=== PATIENT | female | born 1990 | race Caucasian/White ===

== ENCOUNTER 2020-12-20 15:24 | Emergency (ER) | payer MEDICARE, OTHER ==
[2020-12-20 15:29] VITALS: BP 105/76; PULSE 79; RESP 19; TEMP 97.9
[2020-12-20] MEDS ORDERED: ACETAMINOPHEN TAB 500 MG TAB PO STA (15:41)
--- NOTE | 2020-12-20 16:32 | XR ---
EXAMINATION TYPE: XR forearm LT DATE OF EXAM: 12/20/2020 COMPARISON: NONE HISTORY: Pain of mid and distal arm. Midshaft injury. TECHNIQUE: AP and lateral views of the left forearm obtained. FINDINGS: No acute fracture. No dislocation. Joint spaces and alignment are normal. Normal mineraliza tion. No significant soft tissue swelling. IMPRESSION: No acute fracture or dislocation.
--- NOTE | 2020-12-20 16:42 | ED ---
General Adult HPI - General Chief complaint: Extremity Injury, Upper Stated complaint: Arm injury Time Seen by Provider: 12/20/20 15:30 Source: patient Mode of arrival: ambulatory Limitations: no limitations - History of Present Illness Initial comments: 30-year-old female presents to emergency Department with a chief complaint of left arm pain. Patient reports she was opening up an ottoman when the lid fell on the left forearm. Patient reports this occurred about 10 minutes prior to arrival. Patient reports she noticed some swelling and pain at the site of injury but denies any ecchymosis. Denies any paresthesias. States the pain is worse when the region is pressed were palpated and alleviated at rest. Patient is requesting Tylenol for pain. - Related Data Home Medications Medication Instructions Recorded Confirmed Albuterol Nebulized [Ventolin 2.5 mg INHALATION Q4H PRN 03/18/15 03/18/15 Nebulized] Ziprasidone [Geodon] 80 mg PO HS 03/18/15 03/18/15 Allergies Allergy/AdvReac Type Severity Reaction Status Date / Time No Known Allergies Allergy Verified 12/20/20 15:28 Review of Systems ROS Statement: Those systems with pertinent positive or pertinent negative responses have been documented in the HPI. ROS Other: All systems not noted in ROS Statement are negative. 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 History of Any Multi-Drug Resistant Organisms: None Reported Past Surgical History: No Surgical Hx Reported Past Psychological History: ADD/ADHD, Bipolar Smoking Status: Never smoker Past Alcohol Use History: Occasional Past Drug Use History: None Reported General Exam Limitations: no limitations General appearance: alert, in no apparent distress, obese Head exam: Present: atraumatic, normocephalic, normal inspection Eye exam: Present: normal appearance, PERRL, EOMI Pupils: Present: normal accommodation ENT exam: Present: normal exam, normal oropharynx, mucous membranes moist Neck exam: Present: normal inspection, full ROM. Absent: tenderness, lymphadenopathy Respiratory exam: Present: normal lung sounds bilaterally. Absent: respiratory distress Cardiovascular Exam: Present: regular rate, normal rhythm, normal heart sounds. Absent: systolic murmur Extremities exam: Present: normal inspection, full ROM, tenderness (Tenderness over the left mid forearm.), normal capillary refill, other (Palpable ulnar and radial pulse of the laterally. Sensation intact in the left upper trauma.). Absent: pedal edema, joint swelling, calf tenderness Back exam: Present: normal inspection, full ROM. Absent: tenderness Neurological exam: Present: alert, oriented X3 Psychiatric exam: Present: normal affect, normal mood Skin exam: Present: warm, dry, intact, normal color Course Vital Signs 12/20/20 15:26 Temperature 97.9 F Pulse Rate 79 Respiratory 19 Rate Blood Pressure 105/76 O2 Sat by Pulse 99 Oximetry Medical Decision Making - Medical Decision Making 30-year-old male presents to emergency Department with a chief complaint of left arm pain. On physical examination, patient is neurovascularly intact. X-rays are unremarkable. Patient advised to take Tylenol or Motrin for pain. Advised to return to emergency department if symptoms worsen. Case discussed with Dr. Joe. Disposition Clinical Impression: Injury of left forearm, Left forearm pain Disposition: HOME SELF-CARE Condition: Stable Instructions (If sedation given, give patient instructions): Crush Injury (ED) Additional Instructions: Alternate between Tylenol and Motrin for pain control. Return to emergency department if symptoms worsen. Is patient prescribed a controlled substance at d/c from ED?: No Referrals: Carolina Vaughn MD [Primary Care Provider] - 1-2 days Time of Disposition: 16:42
== END 2020-12-20 16:46 | disposition home or self-care (01) ==
LOC: EC 15:24
DX: S59.912A Unspecified injury of left forearm, initial encounter (principal); J45.909 Unspecified asthma, uncomplicated; W19.XXXA Unspecified fall, initial encounter
CPT/HCPCS: 99283

== ENCOUNTER 2021-06-26 13:30 | Emergency (ER) | payer MEDICARE, OTHER ==
--- NOTE | 2021-06-26 14:36 | ED ---
General Adult HPI - General Stated complaint: Covid exposure/wants test Time Seen by Provider: 06/26/21 14:33 Source: patient, RN notes reviewed Mode of arrival: ambulatory Limitations: no limitations - History of Present Illness Initial comments: 31-year-old female presents emergency Department needing covid 19 testing. Patient states her symptoms noticed positive on Friday get results on Friday. 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 Patient denies any cold like symptoms denies any fevers chills his congestion no nausea vomiting diarrhea constipation. Patient offers no complaints. - Related Data Home Medications Medication Instructions Recorded Confirmed Albuterol Nebulized [Ventolin 2.5 mg INHALATION Q4H PRN 03/18/15 03/18/15 Nebulized] Ziprasidone [Geodon] 80 mg PO HS 03/18/15 03/18/15 Allergies Allergy/AdvReac Type Severity Reaction Status Date / Time No Known Allergies Allergy Verified 06/26/21 14:41 Review of Systems ROS Statement: Those systems with pertinent positive or pertinent negative responses have been documented in the HPI. ROS Other: All systems not noted in ROS Statement are negative. 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 Absent: scleral icterus, conjunctival injection, periorbital swelling ENT exam: Present: normal exam, normal oropharynx, mucous membranes moist Neck exam: Present: normal inspection, full ROM. Absent: tenderness, meningismus, lymphadenopathy Respiratory exam: Present: normal lung sounds bilaterally. Absent: respiratory distress, wheezes, rales, rhonchi, stridor Cardiovascular Exam: Present: regular rate, normal rhythm, normal heart sounds. Absent: systolic murmur, diastolic murmur, rubs, gallop, clicks Course Vital Signs 06/26/21 14:33 Temperature 97.8 F Pulse Rate 72 Respiratory 18 Rate Blood Pressure 118/65 O2 Sat by Pulse 100 Oximetry Medical Decision Making - Lab Data Lab Results 06/26/21 Range/Units 14:42 Coronavirus (PCR) Not Detected (Not Detectd) Disposition Clinical Impression: Encounter for laboratory testing for COVID-19 virus Disposition: HOME SELF-CARE Condition: Stable Additional Instructions: Please return to the Emergency Department if symptoms worsen or any other concerns. Is patient prescribed a controlled substance at d/c from ED?: No Referrals: Carolina Vaughn MD [Primary Care Provider] - 1-2 days Time of Disposition: 15:44
[2021-06-26 14:41] VITALS: BP 118/65; PULSE 72; RESP 18; TEMP 97.8
== END 2021-06-26 16:12 | disposition home or self-care (01) ==
LOC: EC 13:30
DX: Z11.52 Encounter for screening for COVID-19 (principal); Z20.822 Contact with and (suspected) exposure to COVID-19; J45.909 Unspecified asthma, uncomplicated; F31.9 Bipolar disorder, unspecified; Z79.51 Long term (current) use of inhaled steroids; Z79.899 Other long term (current) drug therapy
CPT/HCPCS: 87635; 99282

== ENCOUNTER 2023-04-18 19:56 | Emergency (ER) | payer MEDICARE, OTHER ==
[2023-04-18 20:15] VITALS: TEMP 98
[2023-04-18] MEDS ORDERED: SODIUM CHLORIDE 0.9% 1,000 ML IV STA (20:40)
[2023-04-18] MEDS ORDERED: KETOROLAC 15 MG/ML 1 ML VIAL IVP STA (20:40)
[2023-04-18] MEDS ORDERED: ONDANSETRON 4 MG/2 ML VIAL IVP STA (20:40)
--- NOTE | 2023-04-18 21:43 | ED ---
General Adult HPI - General Source: patient, RN notes reviewed Mode of arrival: ambulatory Limitations: no limitations <Raven Anderson - Last Filed: 04/19/23 00:01> <Koffi Mcfarland - Last Filed: 04/19/23 01:36> - General Chief complaint: Abdominal Pain Stated complaint: Abd pain Time Seen by Provider: 04/18/23 20:04 - History of Present Illness Initial comments: 32-year-old female presents to the emergency department chief complaint of right upper abdominal pain. She states that this is been going on for around one month but has been worse over the past week. She admits to nausea with vomiting. She denies radiation of the pain. She states that pain is worse with lying down in bed. Denies fever, chills. Past medical history includes ADHD, GERD. Last bowel movement was today. (Raven Anderson) - Related Data Home Medications Medication Instructions Recorded Confirmed Albuterol Nebulized [Ventolin 2.5 mg INHALATION RT-TID PRN 03/18/15 04/18/23 Nebulized] Dextroamphetamine/Amphetamine 20 mg PO TID 04/18/23 04/18/23 [Adderall] Ferrous Sulfate [Feosol] 325 mg PO DAILY 04/18/23 04/18/23 Fluoride (Sodium) [Sodium Fluoride 1 applic DENTAL DAILY 04/18/23 04/18/23 5000 Plus] Ibuprofen [Motrin] 800 mg PO Q8H PRN 04/18/23 04/18/23 Medroxyprogesterone Acetate 150 mg IM Q84D 04/18/23 04/18/23 [Depo-Provera] Omeprazole 40 mg PO DAILY 04/18/23 04/18/23 Pseudoephedrine HCl 120 mg PO Q12H PRN 04/18/23 04/18/23 [Pseudoephedrine ER] Triamterene-Hctz 75-50Mg [Maxzide 1 tab PO DAILY 04/18/23 04/18/23 75-50] cefUROXime axetiL [Ceftin] 500 mg PO BID 04/18/23 04/18/23 predniSONE See Taper PO DAILY 04/18/23 04/18/23 Previous Rx's Medication Instructions Recorded Ondansetron Odt [Zofran ODT] 4 mg PO Q8HR PRN #10 tab 04/19/23 Allergies Allergy/AdvReac Type Severity Reaction Status Date / Time No Known Allergies Allergy Verified 04/18/23 21:39 Review of Systems ROS Other: All systems not noted in ROS Statement are negative. <Raven Anderson - Last Filed: 04/19/23 00:01> ROS Other: All systems not noted in ROS Statement are negative. <Koffi Mcfarland - Last Filed: 04/19/23 01:36> ROS Statement: Those systems with pertinent positive or pertinent negative responses have been documented in the HPI. 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 Absent: scleral icterus, conjunctival injection, periorbital swelling ENT exam: Present: normal exam, mucous membranes moist Neck exam: Present: normal inspection. Absent: tenderness, meningismus, lymphadenopathy Respiratory exam: Present: normal lung sounds bilaterally. Absent: respiratory distress, wheezes, rales, rhonchi, stridor Cardiovascular Exam: Present: regular rate, normal rhythm, normal heart sounds. Absent: systolic murmur, diastolic murmur, rubs, gallop, clicks GI/Abdominal exam: Present: soft, tenderness (RUQ), normal bowel sounds. Absent: distended, guarding, rebound, rigid Extremities exam: Present: normal inspection, full ROM, normal capillary refill. Absent: tenderness, pedal edema, joint swelling, calf tenderness Back exam: Present: normal inspection Neurological exam: Present: alert, oriented X3 Psychiatric exam: Present: normal affect, normal mood Skin exam: Present: warm, dry, intact, normal color. Absent: rash <Raven Anderson - Last Filed: 04/19/23 00:01> Course Vital Signs 04/18/23 04/19/23 19:57 00:49 Temperature 98 F Pulse Rate 92 85 Respiratory 16 18 Rate Blood Pressure 116/87 112/66 O2 Sat by Pulse 97 98 Oximetry Medical Decision Making - Lab Data Result diagrams: 04/18/23 21:02 04/18/23 21:02 <Raven Anderson - Last Filed: 04/19/23 00:01> - Lab Data Result diagrams: 04/18/23 21:02 04/18/23 21:02 <Koffi Mcfarland - Last Filed: 04/19/23 01:36> - Medical Decision Making Was pt. sent in by a medical professional or institution (, PA, PHLEBOTOMY SERVICES TECHNICIAN, urgent care, hospital, or fpc...) When possible be specific @ -[No] Did you speak to anyone other than the patient for history (EMS, parent, family, police, friend...)? What history was obtained from this source @ -[No] Did you review nursing and triage notes (agree or disagree)? Why? @ -[I reviewed and agree with nursing and triage notes] Were old charts reviewed (outside hosp., previous admission, EMS record, old EKG, old radiological studies, urgent care reports/EKG's, fpc records)? Report findings @ -[No old charts were reviewed] Differential Diagnosis (chest pain, altered mental status, abdominal pain women, abdominal pain men, vaginal bleeding, weakness, fever, dyspnea, syncope, headache, dizziness, GI bleed, back pain, seizure, CVA, palpatations, mental health, musculoskeletal)? @ -[Differential Abdominal Pain Women: Appendicitis, Cholecystitis, diverticulosis, ischemic bowel, pancreatitis, hepatitis, UTI, gastroenteritis, AAA, incarcerated hernia, bowel obstruction, constipation, inflammatory bowel, hepatitis, peptic ulcer disease, splenic infarction, perforated viscus, vulvitis, ovarian torsion, PID, kidney stone, placenta abruption, this is not meant to be an all-inclusive list] EKG interpreted by me (3pts min.). @ -[None] X-rays interpreted by me (1pt min.). @ -[None done] CT interpreted by me (1pt min.). @ -[None done] U/S interpreted by me (1pt. min.). @ -[Ultrasound gallbladder shows cholelithiasis, normal gallbladder wall thickness] What testing was considered but not performed or refused? (CT, X-rays, U/S, labs)? Why? @ -[None] What meds were considered but not given or refused? Why? @ -[None] Did you discuss the management of the patient with other professionals (professionals i.e. , PA, PHLEBOTOMY SERVICES TECHNICIAN, lab, RT, psych nurse, social director, digital media representative, teacher, branch lending officer, lead case manager)? Give summary @ -[No] Was smoking cessation discussed for >3mins.? @ -[No] Was critical care preformed (if so, how long)? @ -[No] Were there social determinants of health that impacted care today? How? (Homelessness, low income, unemployed, alcoholism, drug addiction, transportation, low edu. Level, literacy, decrease access to med. care, [facility], rehab)? @ -[No] Was there de-escalation of care discussed even if they declined (Discuss DNR or withdrawal of care, Hospice)? DNR status @ -[No] What co-morbidities impacted this encounter? (DM, HTN, Smoking, COPD, CAD, Cancer, CVA, ARF, Chemo, Hep., AIDS, mental health diagnosis, sleep apnea, morbid obesity)? @ -[None] Was patient admitted / discharged? Hospital course, mention meds given and route, prescriptions, significant lab abnormalities, going to OR and other pertinent info. @ -[Patient presented to the emergency department for chief complaint of RUQ pain, nausea. Laboratory studies obtained shows WBC 11.3, hemoglobin 10.1 patient does have a history of microcytic anemia; CMP shows sodium 140, potassium 3.9, creatinine 0.76, AST 18, ALT is 21, alk phos 103; UA shows negative nitrite, negative leukocyte esterase. Patient signed out to Dr. Mcfarland awaiting surgical contact and symptom control. ] Undiagnosed new problem with uncertain prognosis? @ -[No] Drug Therapy requiring intensive monitoring for toxicity (Heparin, Nitro, Insulin, Cardizem)? @ -[No] Were any procedures done? @ -[No] Diagnosis/symptom? @ -[default] Acute, or Chronic, or Acute on Chronic? @ -[default] Uncomplicated (without systemic symptoms) or Complicated (systemic symptoms)? @ -[default] Side effects of treatment? @ -[No] Exacerbation, Progression, or Severe Exacerbation? @ -[No] Poses a threat to life or bodily function? How? (Chest pain, USA, ME, pneumonia, PE, COPD, DKA, ARF, appy, cholecystitis, CVA, Diverticulitis, Homicidal, Suicidal, threat to staff... and all critical care pts) @ -[No] (Raven Anderson) - Lab Data Lab Results 04/18/23 04/18/23 04/18/23 Range/Units 21:02 21:02 21:02 WBC 11.3 H (3.8-10.6) k/uL RBC 4.21 (3.80-5.40) m/uL Hgb 10.1 L (11.4-16.0) gm/dL Hct 32.4 L (34.0-46.0) % MCV 77.1 L (80.0-100.0) fL MCH 24.0 L (25.0-35.0) pg MCHC 31.2 (31.0-37.0) g/dL RDW 15.5 (11.5-15.5) % Plt Count 284 (150-450) k/uL MPV 8.5 Neutrophils % 67 % Lymphocytes % 26 % Monocytes % 4 % Eosinophils % 1 % Basophils % 0 % Neutrophils # 7.6 (1.3-7.7) k/uL Lymphocytes # 3.0 (1.0-4.8) k/uL Monocytes # 0.5 (0-1.0) k/uL Eosinophils # 0.1 (0-0.7) k/uL Basophils # 0.0 (0-0.2) k/uL Hypochromasia Moderate Microcytosis Slight Sodium (137-145) mmol/L Potassium (3.5-5.1) mmol/L Chloride (98-107) mmol/L Carbon Dioxide (22-30) mmol/L Anion Gap mmol/L BUN (7-17) mg/dL Creatinine (0.52-1.04) mg/dL Est GFR (CKD-EPI)AfAm (>60 ml/min/1.73 sqM) Est GFR (CKD-EPI)NonAf (>60 ml/min/1.73 sqM) Glucose (74-99) mg/dL Calcium (8.4-10.2) mg/dL Total Bilirubin (0.2-1.3) mg/dL AST (14-36) U/L ALT (4-34) U/L Alkaline Phosphatase (38-126) U/L Total Protein (6.3-8.2) g/dL Albumin (3.5-5.0) g/dL Amylase (30-110) U/L Lipase (23-300) U/L Urine Color Yellow Urine Appearance Cloudy H (Clear) Urine pH 6.0 (5.0-8.0) Ur Specific [place] 1.031 (1.001-1.035) Urine Protein Trace H (Negative) Urine Glucose (UA) Negative (Negative) Urine Ketones Negative (Negative) Urine Blood Negative (Negative) Urine Nitrite Negative (Negative) Urine Bilirubin Negative (Negative) Urine Urobilinogen <2.0 (<2.0) mg/dL Ur Leukocyte Esterase Negative (Negative) Urine WBC 1 (0-5) /hpf Ur Squamous Epith Cells 31 H (0-4) /hpf Urine Bacteria Occasional H (None) /hpf Urine Mucus Moderate H (None) /hpf Urine HCG, Qual Not Detected (Not Detectd) 04/18/23 Range/Units 21:02 WBC (3.8-10.6) k/uL RBC (3.80-5.40) m/uL Hgb (11.4-16.0) gm/dL Hct (34.0-46.0) % MCV (80.0-100.0) fL MCH (25.0-35.0) pg MCHC (31.0-37.0) g/dL RDW (11.5-15.5) % Plt Count (150-450) k/uL MPV Neutrophils % % Lymphocytes % % Monocytes % % Eosinophils % % Basophils % % Neutrophils # (1.3-7.7) k/uL Lymphocytes # (1.0-4.8) k/uL Monocytes # (0-1.0) k/uL Eosinophils # (0-0.7) k/uL Basophils # (0-0.2) k/uL Hypochromasia Microcytosis Sodium 140 (137-145) mmol/L Potassium 3.9 (3.5-5.1) mmol/L Chloride 105 (98-107) mmol/L Carbon Dioxide 22 (22-30) mmol/L Anion Gap 13 mmol/L BUN 33 H (7-17) mg/dL Creatinine 0.76 (0.52-1.04) mg/dL Est GFR (CKD-EPI)AfAm >90 (>60 ml/min/1.73 sqM) Est GFR (CKD-EPI)NonAf >90 (>60 ml/min/1.73 sqM) Glucose 93 (74-99) mg/dL Calcium 9.5 (8.4-10.2) mg/dL Total Bilirubin 0.5 (0.2-1.3) mg/dL AST 18 (14-36) U/L ALT 21 (4-34) U/L Alkaline Phosphatase 103 (38-126) U/L Total Protein 7.1 (6.3-8.2) g/dL Albumin 4.0 (3.5-5.0) g/dL Amylase 67 (30-110) U/L Lipase 154 (23-300) U/L Urine Color Urine Appearance (Clear) Urine pH (5.0-8.0) Ur Specific [place] (1.001-1.035) Urine Protein (Negative) Urine Glucose (UA) (Negative) Urine Ketones (Negative) Urine Blood (Negative) Urine Nitrite (Negative) Urine Bilirubin (Negative) Urine Urobilinogen (<2.0) mg/dL Ur Leukocyte Esterase (Negative) Urine WBC (0-5) /hpf Ur Squamous Epith Cells (0-4) /hpf Urine Bacteria (None) /hpf Urine Mucus (None) /hpf Urine HCG, Qual (Not Detectd) Disposition <Raven Anderson - Last Filed: 04/19/23 00:01> Is patient prescribed a controlled substance at d/c from ED?: No <Koffi Mcfarland - Last Filed: 04/19/23 01:36> Clinical Impression: Biliary colic Disposition: HOME SELF-CARE Condition: Good Instructions (If sedation given, give patient instructions): Biliary Colic (ED), Abdominal Pain (ED) Prescriptions: Ondansetron Odt [Zofran ODT] 4 mg PO Q8HR PRN #10 tab PRN Reason: Nausea Referrals: Carolina Vaughn MD [Primary Care Provider] - 1-2 days Elsy Huang MD [STAFF PHYSICIAN] - 1-2 days
[2023-04-18 21:49] LABS: Basophils % (A) 0 %; Eosinophils # (A) 0.1 k/uL (0-0.7); Eosinophils % (A) 1 %; HCT 32.4 % (34.0-46.0); HGB 10.1 gm/dL (11.4-16.0); Hypochromasia Moderate; Lymphocytes % (A) 26 %; MCHC 31.2 g/dL (31.0-37.0); MCV 77.1 fL (80.0-100.0); Mean Platelet Volume 8.5; Microcytosis Slight; Monocytes # (A) 0.5 k/uL (0-1.0); Monocytes % (A) 4 %; Neutrophils # (A) 7.6 k/uL (1.3-7.7); Neutrophils % (A) 67 %; Platelet Count 284 k/uL (150-450); RBC 4.21 m/uL (3.80-5.40); RDW 15.5 % (11.5-15.5); WBC 11.3 k/uL (3.8-10.6)
[2023-04-18 22:00] LABS: Appearance,Urine Cloudy (Clear); Bacteria,Urine Occasional /hpf; Bilirubin,Urine Negative (Negative); Blood,Urine Negative (Negative); Color,Urine Yellow; Glucose,Urine (UA) Negative (Negative); Ketones,Urine Negative (Negative); Leukocyte Esterase,Urine Negative (Negative); Mucus,Urine Moderate /hpf; Nitrite,Urine Negative (Negative); Protein,Urine Trace (Negative); Specific Gravity,Urine 1.031 (1.001-1.035); Squamous Epithelial Cell,Urine 31 /hpf (0-4); Urobilinogen,Urine <2.0 mg/dL (<2.0); WBC,Urine 1 /hpf (0-5)
[2023-04-18 22:13] LABS: Potassium 3.9 mmol/L (3.5-5.1); Sodium 140 mmol/L (137-145)
[2023-04-18 22:15] LABS: ALT 21 U/L (4-34); AST 18 U/L (14-36); African American GFR (CKD) >90 (>60 ml/min/1.73 sqM); Alkaline Phosphatase 103 U/L (38-126); Amylase 67 U/L (30-110); Anion Gap 13 mmol/L; Blood Urea Nitrogen 33 mg/dL (7-17); Calcium 9.5 mg/dL (8.4-10.2); Carbon Dioxide 22 mmol/L (22-30); Chloride 105 mmol/L (98-107); Glucose 93 mg/dL (74-99); Lipase 154 U/L (23-300); Non-African American GFR(CKD) >90 (>60 ml/min/1.73 sqM); Total Bilirubin 0.5 mg/dL (0.2-1.3); Total Protein 7.1 g/dL (6.3-8.2)
[2023-04-18] MEDS ORDERED: MORPHINE SULFATE 4 MG/ML SYRINGE IVP STA (23:05)
[2023-04-18] MEDS ORDERED: METOCLOPRAMIDE 5 MG/ML 2 ML VIAL IVP STA (23:30)
--- NOTE | 2023-04-18 23:43 | US ---
EXAM: US Abdomen Limited, Gallbladder CLINICAL HISTORY: ITS.REASON US Reason: RUQ pain TECHNIQUE: Real-time ultrasound of the right upper quadrant with image documentation. COMPARISON: No previous studies. FINDINGS: Liver: The liver measures 90.9 cm. Fatty infiltration of liver. Gallbladder: Gallbladder wall measures 0.28 cm. Multiple gallstones are noted. Positive ultrasound Ramirez sign. Common bile duct: Common bile duct measures 0.4 cm. No stones. No dilation. Pancreas: Obscuration of the pancreas due to bowel gas. Right kidney: Right kidney measures 10.8 x 5.5 x 4.5 cm without hydronephrosis. IMPRESSION: 1. Cholelithiasis. 2. No pericholecystic fluid. 3. No gallbladder wall thickening. 4. This constellation of findings is equivocal requires clinical correlation. 5. Nonvisualization of the pancreas due to bowel gas.
[2023-04-19 01:07] VITALS: BP 112/66; PULSE 85; RESP 18
== END 2023-04-19 01:47 | disposition home or self-care (01) ==
LOC: EC 19:56
DX: K80.70 Calculus of gallbladder and bile duct without cholecystitis without obstruction (principal); J45.909 Unspecified asthma, uncomplicated; K21.9 Gastro-esophageal reflux disease without esophagitis; F31.9 Bipolar disorder, unspecified; Z79.3 Long term (current) use of hormonal contraceptives; Z79.52 Long term (current) use of systemic steroids; Z79.899 Other long term (current) drug therapy
CPT/HCPCS: 36415; 80053; 82150; 83690; 85025; 81001; 81025; 76705; 99284; 96374; 96375 ×3; 96361; J2270; J2765; J2405; J1885

== ENCOUNTER → 2023-07-09 | Outpatient (CLI) | payer MEDICARE, OTHER ==
--- NOTE | 2023-07-09 12:14 | FL ---
EXAMINATION TYPE: FL UGI air wo esophagus wo KUB DATE OF EXAM: 07/09/2023 COMPARISON: NONE HISTORY: K21.9 GERD TECHNIQUE: A single contrast UGI study is performed. FINDINGS: Block Sealer image of the abdomen shows no gross abnormality. There is common bile duct stent not ed. Cholecystectomy clips in place. Surgical sutures from sleep gastrectomy identified. The esophagus shows normal motility and emptying into the stomach. No evidence of hiatal hernia or s tricture noted. Sleeve gastrectomy changes noted. No evidence for obstruction or leak. Contrast is seen within the du odenum. There may be distention of the sleeve gastrectomy gastric residual. The duodenal bulb, sweep, and proximal small bowel loops are unremarkable. IMPRESSION: There may be distention of the sleeve gastrectomy gastric residual.
== END | disposition home or self-care (01) ==
LOC: RADUSWWP 10:04
PROVIDERS: ATTEND Surgery
DX: K21.9 Gastro-esophageal reflux disease without esophagitis (principal)
CPT/HCPCS: 74246

== ENCOUNTER → 2023-10-01 | Outpatient (CLI) | payer MEDICARE, OTHER ==
--- NOTE | 2023-10-01 14:42 | P.HPBAR ---
Bariatric H&P - History & Physicial H&P Date: 10/01/23 History & Physicial: Visit/CC: FOLLOW UP CARE Patient initial contact: Initial weight: 217.724 kg Initial weight in pounds: 480.00 Height: 5 ft 4 in Initial BMI: 82.3 Last weight: Current weight: 150.593 kg Current weight in pounds: 332.00 Current BMI: 56.9 [place] body weight (based on NIH guidelines): 54.431 kg Excess body weight loss: 41.1% The patient is a 33 year-old F who presents for Bariatric Assessment. DATE OF SERVICE: 10/01/23 REASON FOR CONSULTATION: Status post sleeve gastrectomy HISTORY OF PRESENT ILLNESS: Joi Villanueva is a 33-year-old female who comes with lifelong morbid obesity. She has pre-existing history of sleeve gastrectomy with complication of severe reflux disease. She reports was diagnosed with a hiatal hernia. She had a cholecystectomy with complications including gallbladder leak by different provider. She reports moderate to severe right upper quadrant abdominal pain. She had drain placement from her bile leak and subsequent removal of her drain. As a result of her weight gain and complications of sleeve gastrectomy, she is looking into the gastric bypass. She reports troubles with breathing due to a hiatal hernia as well. She reports having a recent CT scan at outside facility. At height of 5 feet 4 inches, her ideal body weight is 144 pounds. She comes in 332 pounds. Her body mass index is 57.0. She is 188 pounds overweight. PAST MEDICAL HISTORY: 1. Morbid obesity due to excess calories 2. Body mass index of 60 3. Osteoarthritis of the knees. 4. Osteoarthritis of the lower back. 5. Attention deficit disorder 6. Iron deficiency anemia 7. Gastroesophageal reflux disease 8. Hypertensive heart disease 9. Asthma 10. Chronic obstructive pulmonary disease 11. Bipolar disorder seizure disorder 12. Seizure disorder PAST SURGICAL HISTORY: 1. Cholecystectomy with complication 2. Abdominoplasty 3. Status post sleeve gastrectomy HOME MEDICATIONS: Home Medications Medication Instructions Recorded Confirmed Albuterol Nebulized [Ventolin 2.5 mg INHALATION RT-TID PRN 03/18/15 04/18/23 Nebulized] Dextroamphetamine/Amphetamine 20 mg PO TID 04/18/23 04/18/23 [Adderall] Ferrous Sulfate [Feosol] 325 mg PO DAILY 04/18/23 04/18/23 Fluoride (Sodium) [Sodium Fluoride 1 applic DENTAL DAILY 04/18/23 04/18/23 5000 Plus] Ibuprofen [Motrin] 800 mg PO Q8H PRN 04/18/23 04/18/23 Medroxyprogesterone Acetate 150 mg IM Q84D 04/18/23 04/18/23 [Depo-Provera] Omeprazole 40 mg PO DAILY 04/18/23 04/18/23 Pseudoephedrine HCl 120 mg PO Q12H PRN 04/18/23 04/18/23 [Pseudoephedrine ER] Triamterene-Hctz 75-50Mg [Maxzide 1 tab PO DAILY 04/18/23 04/18/23 75-50] cefUROXime axetiL [Ceftin] 500 mg PO BID 04/18/23 04/18/23 predniSONE See Taper PO DAILY 04/18/23 04/18/23 Previous Rx's Medication Instructions Recorded Ondansetron Odt [Zofran ODT] 4 mg PO Q8HR PRN #10 tab 04/19/23 ALLERGIES: Allergies Allergy/AdvReac Type Severity Reaction Status Date / Time No Known Allergies Allergy Verified 04/18/23 21:39 SOCIAL HISTORY: Denies past tobacco use. FAMILY HISTORY: No family history of ulcerative colitis disease or Crohn's disease. Family history of morbid obesity. No lupus in the family. No reports of stomach or esophageal cancer. REVIEW OF ORGAN SYSTEMS: CONSTITUTIONAL: At height of 5 feet 4 inches, her ideal body weight is 144 pounds. She comes in 332 pounds. Her body mass index is 57.0. She is 188 pounds overweight. HEENT: Denies any active troubles with vision or hearing. ENDOCRINE: Denies diabetes. No hypothyroidism. CARDIOVASCULAR: Past reports of palpitations or heart attacks or chest pain. Denies hypertensive heart disease. RESPIRATORY: Has daytime somnolence. Has asthma. Has chronic obstructive p ulmonary disease. GASTROINTESTINAL: Denies any bright red blood per rectum. No diarrhea. No constipation. Has gastroesophageal reflux disease. History of cholecystectomy with bile leak and complications. GENITOURINARY: Denies bladder urgency. No recent blood in urine MUSCULOSKELETAL: Has lower back pain and joint pain. Has osteoarthritis of the knees. NEURO: No headaches. No seizure disorders. PSYCH: Denies depression. No suicidal ideation. RHEUMATOLOGIC: No lupus. No rheumatoid arthritis. HEMATOLOGIC: Denies any abnormal bleeding or bruising. SKIN: Prior panniculectomy. PHYSICAL EXAM: VITAL SIGNS: Height 5 foot 4 inches, weight 332 pounds. BMI 57.0 Vital Signs Temp 98.1 F 10/01/23 14:14 Pulse 86 10/01/23 14:14 Resp 16 10/01/23 14:14 BP 122/65 10/01/23 14:14 Pulse Ox FiO2 Intake & Output 10/01/23 10/01/23 10/02/23 06:59 18:59 06:59 Weight 150.593 kg GENERAL: Well-developed in no acute distress. HEENT: No scleral icterus. Extraocular movements grossly intact. Hears conversational speech. No nasal drainage. NECK: Supple without lymphadenopathy. CHEST: Nonlabored respirations with equal bilateral excursions. CARDIOVASCULAR: Regular rate and regular rhythm. Distal 2+ pulses. ABDOMEN: Obese, soft, nontender, nondistended. MUSCULOSKELETAL: No clubbing, cyanosis. NEURO: No focal or lateralizing signs. Cranial nerves 2 through 12 grossly within normal limits. PSYCH: Appropriate affect. Alert and oriented to person, place and time. SKIN: Good skin turgor. Well perfused. STUDIES: Upper GI independently reviewed from June demonstrates no free air or obstruction. No specific hiatal hernia identified or esophageal dysmotility. This is my independent interpretation. Large and dilated sleeve gastrectomy reservoir identified. ASSESSMENT: 1. Morbid obesity due to excess calories 2. Body mass index of 60 3. Osteoarthritis of the knees. 4. Osteoarthritis of the lower back. 5. Attention deficit disorder 6. Iron deficiency anemia 7. Gastroesophageal reflux disease 8. Hypertensive heart disease 9. Asthma 10. Chronic obstructive pulmonary disease 11. Bipolar disorder seizure disorder 12. Seizure disorder 13. Complications from sleeve gastrectomy 14. Right upper quadrant abdominal pain 15. History of cholecystectomy with complication 16. Diaphragmatic hiatal hernia PLAN: 1. She reports having trouble with a hiatal hernia. However, with her symptoms do recommend upper endoscopy for further assessment 2. Recommend full bariatric labs with correction of micro and macro nutritional deficiencies. 3. Patient is requested to present her recent CT scan from outside facility due to her right upper quadrant abdominal pain. 4. With her prior complications from gallbladder surgery, may have adhesions contributing to her pain. May benefit from lysis of adhesions, diagnostic laparoscopy. 5. She is elevated risk of complications due to pre-existing comorbidities. 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 History of Any Multi-Drug Resistant Organisms: None Reported Past Surgical History: No Surgical Hx Reported Smoking Status: Never smoker Surgical - Exam Vital Signs Temp Pulse Resp BP 98.1 F 86 16 122/65 10/01/23 14:14 10/01/23 14:14 10/01/23 14:14 10/01/23 14:14 Results - Labs 10/01/23 15:06 10/01/23 15:06 Bariatric Checklist Checklist: Plan: Checklist: EGD: 1. Hiatal hernia: 2. H. Pylori: HgbA1c: Vitamin D: Smoking: Never smoker Primary care physician referral: Psychiatry clearance: Cardiology clearance: Sleep study: Diet journal: VTE risk score: VTE risk level: Rehab needs at discharge:
[2023-10-01 14:43] VITALS: BP 122/65; PULSE 86; RESP 16; TEMP 98.1; BMI 56.9
[2023-10-01 16:01] LABS: INR 0.8 (<1.2); Prothrombin Time 9.5 sec (10.0-12.5)
[2023-10-01 18:12] LABS: HCT 37.5 % (37.2-46.3); HGB 11.5 g/dL (12.0-15.0); MCH 26.6 pg (27.0-32.0); MCHC 30.7 g/dL (32.0-37.0); MCV 86.6 FL (80.0-97.0); Mean Platelet Volume 10.9 FL (9.5-12.2); NRBC Per 100 WBC 0 X 10*3/uL (0.00-0.01); Platelet Count 225 X 10*3/uL (140-440); RBC 4.33 X 10*6/uL (4.10-5.20); RDW 13.9 % (11.5-14.5)
[2023-10-01 19:07] LABS: Prealbumin 20.2 mg/dL (18.0-42.0)
[2023-10-01 19:31] LABS: % Iron Saturation 7.42 (12.00-45.00); ALT 10 U/L (8-44); AST 20 U/L (13-35); Albumin 4.1 g/dL (3.8-4.9); Albumin/Globulin Ratio 1.71 Ratio (1.60-3.17); Alkaline Phosphatase 124 U/L (41-126); BUN/Creat Ratio 22.62 Ratio (12.00-20.00); Blood Urea Nitrogen 18.1 mg/dL (9.0-27.0); Calcium 9.5 mg/dL (8.7-10.3); Carbon Dioxide 23.2 mmol/L (21.6-31.8); Chloride 105 mmol/L (96-109); Chol/HDL Ratio 2.77 Ratio; Ferritin 12.3 ng/mL (10.0-291.0); Globulin 2.4 g/dL (1.6-3.3); Glucose 99 mg/dL (70-110); Iron 27 UG/DL (50-170); LDL Cholesterol,Calculated 87.7 mg/dL (0.0-131.0); Phosphorus 3.3 mg/dL (2.4-5.1); Sodium 141 mmol/L (135-145); Total Bilirubin 0.3 mg/dL (0.3-1.2); Total Iron Binding Capacity 364 UG/DL (228-460); Total Protein 6.5 g/dL (6.2-8.2); VLDL Calculation 18.38 mg/dL (5.00-40.00)
[2023-10-02 10:37] LABS: Zinc, Serum 74 ug/dL (60-130)
[2023-10-03 06:21] LABS: Vit B1(Thiamine) 70 ug/L (38-122)
== END ==
LOC: BARWHC3 12:59
PROVIDERS: ATTEND Surgery Plastic and Reconstructive Surgery
DX: E66.01 Morbid (severe) obesity due to excess calories (principal); D50.8 Other iron deficiency anemias; E55.9 Vitamin D deficiency, unspecified; K74.1 Hepatic sclerosis; N19 Unspecified kidney failure; T56.894A Toxic effect of other metals, undetermined, initial encounter; K50.90 Crohn's disease, unspecified, without complications; K90.89 Other intestinal malabsorption; M17.0 Bilateral primary osteoarthritis of knee; M47.816 Spondylosis without myelopathy or radiculopathy, lumbar region; F98.8 Other specified behavioral and emotional disorders with onset usually occurring in childhood and adolescence; K21.9 Gastro-esophageal reflux disease without esophagitis; I11.9 Hypertensive heart disease without heart failure; J44.89 Other specified chronic obstructive pulmonary disease; F31.9 Bipolar disorder, unspecified; R10.11 Right upper quadrant pain; K44.9 Diaphragmatic hernia without obstruction or gangrene; G40.909 Epilepsy, unspecified, not intractable, without status epilepticus; K95.89 Other complications of other bariatric procedure; Z90.49 Acquired absence of other specified parts of digestive tract; Z68.44 Body mass index [BMI] 60.0-69.9, adult; Z79.52 Long term (current) use of systemic steroids; Z79.899 Other long term (current) drug therapy
CPT/HCPCS: 84255; 84134; 84425; 80061; 80053; 82607; 82728; 82525; 82746; 83540; 83550; 83735; 84100; 84443; 84590; 84630; 85027; 85610; 85730; 82306; 83970; 83036; 80307; 93005; G0480; G0463; 80323; 99202

== ENCOUNTER → 2023-10-20 | Day surgery (SDC) | payer MEDICARE, OTHER ==
[~2023-10-20] MED LIST: ACETAMINOPHEN TAB 500 MG TAB ONE; ALBUTEROL HFA INHALER INHALATION ONE; HEPARIN SODIUM,PORCINE 5,000 UNIT/ML 1 ML VIAL SQ STA; LIDOCAINE 1% (10MG/ML) FOR IV START INTRADERMA PRN; LIDOCAINE 1% INJ 10MG/ML (20 ML MDV) ONE; MIDAZOLAM 2 MG/2 ML VIAL ONE; PROPOFOL 10 MG/ML 20 ML VIAL IV ONE; Pre Op ABX Message 1 EACH MISC MISCELLANE ONE; ROCURONIUM 10 MG/ML (5 ML VIAL) IV ONE; SCOPOLAMINE 1 MG/72 HR PATCH TRANSDERM ONE; SUCCINYLCHOLINE CHLORIDE 200 MG/10 ML VIAL IV ONE; SUGAMMADEX SODIUM 200 MG/2 ML SDV IV ONE; ceFAZolin 3 GM in SODIUM CHLORIDE 0.9% 100 ML IVPB ONE; droPERidol 5 MG/2 ML VIAL IVP ONE; fentaNYL (PF) 50 MCG/ML 2 ML AMP ONE
--- NOTE | 2023-10-20 07:24 | P.GSHP ---
History of Present Illness H&P Date: 10/20/23 CHIEF COMPLAINT: History of intra-abdominal adhesions HISTORY OF PRESENT ILLNESS: The patient is a 33-year-old female who presents with history of intra-abdominal adhesions from multiple prior surgeries including increasing abdominal pain for over 6 years months. She now presents for diagnostic laparoscopy including lysis of adhesions. She has personal history of bile leak including bile drain from cholecystectomy at outside facility. She has personal history of sleeve gastrectomy. PAST MEDICAL HISTORY: Please see list. PAST SURGICAL HISTORY: Please see list. MEDICATIONS: Please see list. ALLERGIES: Please see list. SOCIAL HISTORY: No illicit drug use FAMILY HISTORY: No reports of Crohn disease or ulcerative colitis. REVIEW OF ORGAN SYSTEMS: CONSTITUTIONAL: Denies any fever or chills. Denies recent weight loss or weight gain. HEENT: Denies any trouble with vision, hearing or nosebleeds. No difficulty swallowing. LYMPHATIC: The patient denies any lumps and bumps around the neck. ENDOCRINE: Denies any thyroid disorders. Denies any blood sugar glucose intole dania. RESPIRATORY: Denies pneumonia. Denies any troubles with breathing or dyspnea on exertion. CARDIOVASCULAR: Denies any chest pain, palpitations, or recent heart attacks. GASTROINTESTINAL: Has severe abdominal pain with change in bowel habits. GENITOURINARY: Denies any blood in urine or increased urinary frequency. MUSCULOSKELETAL: Denies any back pain, stiffness, joint arthritis. NEUROLOGIC: Denies any numbness or tingling along the distal extremities. No seizure disorders or headaches. PSYCHIATRIC: Denies depression or suidical ideation. HEMATOLOGIC: Denies any abnormal bleeding or bruising. BREASTS: Denies any breast lumps, pain or nipple discharge. PHYSICAL EXAM: GENERAL: Well-developed pleasant male in no acute distress. HEENT: No scleral icterus. Extraocular movements grossly intact. Moist buccal mucosa. NECK: Supple without lymphadenopathy. CHEST: Unlabored respirations. Equal bilateral excursions. CARDIOVASCULAR: Regular rate and rhythm. Distal 2+ pulses. ABDOMEN: Soft, nondistended. Tender generalized abdominal pain. MUSCULOSKELETAL: No clubbing, cyanosis, or edema. SKIN: Well perfused. PSYCH: Alert and oriented to self, place and time ASSESSMENT: 1. Diffuse abdominal pain. 2. History of multiple abdominal surgeries. 3. Intra-abdominal adhesions. PLAN: 1. Robotic lysis of adhesions were described in detail including risk of injury to the intestine, need for further surgery, and open technique. 2. DVT prophylaxis. 3. Antibiotic prophylaxis. 4. She is elevated risk due to pre-existing history of multiple abdominal surgeries. Past Medical History Past Medical History: Asthma, GERD/Reflux, Osteoarthritis (OA) Additional Past Medical History / Comment(s): stress seizures 10 yrs ago, hiatal hernia, lower back arthritis, current intermittent right/lower quad abd pain x 2 weeks History of Any Multi-Drug Resistant Organisms: None Reported Past Surgical History: Bariatric Surgery, Breast Surgery, Cholecystectomy Additional Past Surgical History / Comment(s): sleeve gastrectomy 2017, tummy tuck, breast reduction Past Anesthesia/Blood Transfusion Reactions: No Reported Reaction Smoking Status: Never smoker Medications and Allergies Home Medications Medication Instructions Recorded Confirmed Type Albuterol Nebulized [Ventolin 2.5 mg INHALATION RT-TID PRN 03/18/15 10/16/23 His tory Nebulized] Dextroamphetamine/Amphetamine 20 mg PO TID 04/18/23 10/16/23 History [Adderall] Medroxyprogesterone Acetate 150 mg IM Q84D 04/18/23 10/16/23 History [Depo-Provera] Omeprazole 40 mg PO DAILY 04/18/23 10/16/23 History Triamterene-Hctz 75-50Mg [Maxzide 1 tab PO DAILY 04/18/23 10/16/23 History 75-50] Albuterol Inhaler [Ventolin Hfa 1 - 2 puff INHALATION Q6H PRN 10/14/23 10/16/23 History Inhaler] Allergies Allergy/AdvReac Type Severity Reaction Status Date / Time No Known Allergies Allergy Verified 10/16/23 13:25
[2023-10-20] MEDS: LACTATED RINGERS 1,000 ML IV SCH (09:29)
[2023-10-20] MEDS: DEXAMETHASONE SOD PHOSPHATE 4 MG/ML 1 ML VIAL IV ONE (09:53)
[2023-10-20] MEDS: ONDANSETRON 4 MG/2 ML VIAL IVP PRN (09:54)
[2023-10-20] MEDS: FAMOTIDINE 20 MG/2 ML VIAL IVP ONE (09:54)
[2023-10-20] MEDS: ACETAMINOPHEN TAB 500 MG TAB PO ONE (10:29)
[2023-10-20] MEDS: HEPARIN SODIUM,PORCINE 5,000 UNIT/ML 1 ML VIAL SQ ONE (10:30)
--- NOTE | 2023-10-20 10:41 | P.HPADDEND ---
H&P Addendum H&P Addendum Date: 10/20/23 Patient reports right lower quadrant abdominal pain worsening the last several days. Risk of chronic appendicitis described. Patient opted for appendectomy including lysis of adhesions
[2023-10-20] MEDS: SODIUM CHLORIDE 0.9% 100 ML with ceFAZolin 3,000 MG IV ONE (10:57)
[2023-10-20] MEDS: LIDOCAINE 1%-EPI 1:100,000 20 ML VIAL SQ ONE (11:41)
[2023-10-20 12:44] VITALS: TEMP 97.8
[2023-10-20] MEDS: HYDROmorphone 0.5 MG/0.5 ML SYRINGE IVP ONE ×2 (12:51→13:08)
--- NOTE | 2023-10-20 13:12 | P.OP ---
Date of Procedure: 10/20/23 Description of Procedure: SURGEON: NICOLE JOHNSON MD PREOPERATIVE DIAGNOSES: 1. Right-sided abdominal pain 2. History of bile leak following cholecystectomy 3. Morbid obesity due to excess calories, BMI 57.9 4. Status post sleeve gastrectomy 5. Status post abdominoplasty 6. Hypertensive heart disease 7. Gastroesophageal reflux disease 8. Chronic obstructive pulm disease due to asthma 9. Seizure disorder 10. Bipolar disorder 11. ADD with ADHD POSTOPERATIVE DIAGNOSES: 1. Right-sided abdominal pain 2. History of bile leak following cholecystectomy 3. Morbid obesity due to excess calories, BMI 57.9 4. Status post sleeve gastrectomy 5. Status post abdominoplasty 6. Hypertensive heart disease 7. Gastroesophageal reflux disease 8. Chronic obstructive pulm disease due to asthma 9. Seizure disorder 10. Bipolar disorder 11. ADD with ADHD 12. Right upper quadrant and epigastric peritoneal adhesions OPERATION: 1. Robotic-assisted da Tiumr Xi laparoscopic with lysis of adhesions ESTIMATED BLOOD LOSS: 5 mL. SPECIMENS REMOVED: None. COMPLICATIONS: None. OPERATIVE FINDINGS: 1. No inguinal hernias identified 2. Small bowel unremarkable 3. Moderate epigastric and right upper quadrant abdominal adhesions involving omentum to abdominal wall 4. Right ovary including uterus and fallopian tube unremarkable 5. Ascending colon unremarkable 6. Appendix unremarkable 7. Redundant sigmoid colon with extension into the right pelvis INDICATIONS: The patient is a 33-year-old female who presents with persistent right upper and right-sided abdominal pain. Today she reported possible extension to the right lower quadrant. Surgical intervention with diagnostic laparoscopy, lysis of adhesions and possible left inguinal hernia repair were described. Informed consent was obtained. Robotic assisted laparoscopic approach was described. Benefits and risks of the procedure including but not limited to bleeding, infection was described. Informed consent was obtained. DESCRIPTION OF PROCEDURE: Patient was brought to the operating room, placed in supine position. After general induction, the abdomen had been prepped and draped in standard sterile fashion. The robotic da Timur XI system was primed. After a timeout protocol was performed, the patient had been prepped and draped in standard sterile fashion. The robot was docked along the left lateral abdomen. Please note prior to docking of the robot; however, a 5 mm 0 degrees laparoscopic trocar entry was performed along the left upper quadrant. Next, three 8 mm robotic ports were placed along the left lateral abdominal wall abdomen. Trochars were placed at least 10 to 15 cm away from the target anatomy. Instruments including graspers and scissors with cautery were interchanged by the education assistant. I had sat at the console. Peritoneal lesions involving the epigastrium and right upper quadrant was identified. Omental adhesions to the abdominal wall involving the epigastrium was sharply lysed using vessel sealer. The transverse colon and ascending colon were unremarkable. The small bowel was investigated from the ligament of Treitz proximally to the terminal ileum all which were unremarkable. The right ovary fallopian tube including uterus were unremarkable. No additional pelvic adhesions were identified. The appendix was unremarkable. The sigmoid colon was highly redundant with extension to the right pelvis. No inguinal hernias were identified. No ventral hernias were identified. The robot was undocked. All pneumoperitoneum and instruments were evacuated from the abdominal cavity. The incisions were reapproximated using 4-0 Monocryl in an interrupted subcuticular fashion. Please note along the trocar sites, local anesthetic was placed as a field block prior to insertion of all instruments. Exofin was applied to the skin. At the end of the procedure needle, sponge, and instrument count had been verified correct by the ophthalmic surgical assistant. The patient was transferred to postanesthesia care unit in stable condition. Plan - Discharge Summary Discharge Rx Participant: No New Discharge Prescriptions: New Acetaminophen Tab [Tylenol Tab] 1,000 mg PO Q6HR PRN #30 tablet PRN Reason: Pain Simethicone [Gas-X] 125 mg PO AC-TID PRN #20 capsule PRN Reason: Pain Ibuprofen [Motrin] 600 mg PO Q8HR PRN #30 tab PRN Reason: Pain Continue Albuterol Nebulized [Ventolin Nebulized] 2.5 mg INHALATION RT-TID PRN PRN Reason: Shortness Of Breath Omeprazole 40 mg PO DAILY Triamterene-Hctz 75-50Mg [Maxzide 75-50] 1 tab PO DAILY Dextroamphetamine/Amphetamine [Adderall] 20 mg PO TID Medroxyprogesterone Acetate [Depo-Provera] 150 mg IM Q84D Albuterol Inhaler [Ventolin Hfa Inhaler] 1 - 2 puff INHALATION Q6H PRN PRN Reason: Shortness Of Breath Discharge Medication List Albuterol Nebulized [Ventolin Nebulized] 2.5 mg INHALATION RT-TID PRN 03/18/15 [History] Dextroamphetamine/Amphetamine [Adderall] 20 mg PO TID 04/18/23 [History] Medroxyprogesterone Acetate [Depo-Provera] 150 mg IM Q84D 04/18/23 [History] Omeprazole 40 mg PO DAILY 04/18/23 [History] Triamterene-Hctz 75-50Mg [Maxzide 75-50] 1 tab PO DAILY 04/18/23 [History] Albuterol Inhaler [Ventolin Hfa Inhaler] 1 - 2 puff INHALATION Q6H PRN 10/14/23 [History] Acetaminophen Tab [Tylenol Tab] 1,000 mg PO Q6HR PRN #30 tablet 10/20/23 [Rx] Ibuprofen [Motrin] 600 mg PO Q8HR PRN #30 tab 10/20/23 [Rx] Simethicone [Gas-X] 125 mg PO AC-TID PRN #20 capsule 10/20/23 [Rx] Follow up App[facility]ment(s[facility]Ref[facility] [place] [place] [facility] [place] 10[facility]24/23 9:00 am Patient Instructions/Handouts: Lysis of Abdominal Adhesions (DC) Activity/Diet/Wound Care/Special Instructions: No lifting over 10 pounds in 2 weeks until November 02October shower. No bath tub soaks for two weeks until November 02 Diet as tolerated. Use Tylenol, simethicone and ibuprofen or Aleve scheduled for the next 24-48 hours for best pain relief. Use ice along incisions for today to prevent swelling. Discharge Disposition: HOME SELF-CARE
[2023-10-20] MEDS: fentaNYL (PF) 50 MCG/ML 2 ML AMP IVP ONE ×2 (13:21→13:28)
[2023-10-20] MEDS: KETOROLAC 15 MG/ML 1 ML VIAL IVP ONE (13:30)
[2023-10-20] MEDS: LACTATED RINGERS 1,000 ML IV ONE (13:37)
[2023-10-20] MEDS: HYDROmorphone 0.5 MG/0.5 ML SYRINGE IVP PRN (14:05)
[2023-10-20 15:02] VITALS: BP 106/65; PULSE 80; RESP 16
== END | disposition home or self-care (01) ==
LOC: OR 08:44
PROVIDERS: ATTEND Surgery Plastic and Reconstructive Surgery
DX: K66.0 Peritoneal adhesions (postprocedural) (postinfection) (principal); E66.01 Morbid (severe) obesity due to excess calories; Z68.43 Body mass index [BMI] 50.0-59.9, adult; I11.9 Hypertensive heart disease without heart failure; K21.9 Gastro-esophageal reflux disease without esophagitis; J44.89 Other specified chronic obstructive pulmonary disease; G40.909 Epilepsy, unspecified, not intractable, without status epilepticus; F31.9 Bipolar disorder, unspecified; F90.9 Attention-deficit hyperactivity disorder, unspecified type; J45.909 Unspecified asthma, uncomplicated; M19.90 Unspecified osteoarthritis, unspecified site; Z90.49 Acquired absence of other specified parts of digestive tract; Z98.890 Other specified postprocedural states; Z79.899 Other long term (current) drug therapy
CPT/HCPCS: 44180; S2900; 81025

== ENCOUNTER → 2023-10-24 | Outpatient (CLI) | payer MEDICARE, OTHER ==
--- NOTE | 2023-10-24 10:16 | P.BASOAP ---
Subjective Progress Note Date: 10/24/23 Patient given medicine for patient. She went back to work prior to medical advice. Patient noted nurse told her to return to work which was not our instruction. She has nausea she drinks moderate Mountain Dew high sugar content. Fatty liver identified and reviewed. Dietary adjustment of 80 g protein with 150 g carbs and 1000 calories described. Follow-up in 1 month with strict dietary weight loss. Patient seeking gastric bypass. Patient has not been following any medical advice. High risk for any procedures. Likely not a candidate until demonstrates medical compliance. Abdominal pain resolved after lysis of adhesions. Assessment/Plan Plan: Date: Initial Weight: 217.724 kg Initial BMI: Current Weight: Current BMI: Type of Surgery: Total Volume in Band: Previous Volume: Volume Removed: Volume Added: Band Size:
[2023-10-24 11:27] VITALS: BP 121/67; PULSE 76; RESP 14; TEMP 98; BMI 58.3
== END ==
LOC: BARWHC3 08:38
PROVIDERS: ATTEND Surgery Plastic and Reconstructive Surgery
DX: E66.01 Morbid (severe) obesity due to excess calories (principal); R11.0 Nausea; K76.0 Fatty (change of) liver, not elsewhere classified; K66.0 Peritoneal adhesions (postprocedural) (postinfection); Z68.43 Body mass index [BMI] 50.0-59.9, adult
CPT/HCPCS: 99211

== ENCOUNTER → 2023-11-12 | Outpatient (CLI) | payer MEDICARE, OTHER ==
[2023-11-12 13:21] VITALS: BP 161/93; PULSE 63; TEMP 98; BMI 56.5
--- NOTE | 2023-11-12 13:52 | P.BASOAP ---
Subjective Progress Note Date: 11/12/23 She was snacking at her job including chips. She is taking less calories. She lost 10 pounds. Fatty liver disease. Goal fluids 220 oz. Dilute 1/3 to 2/3. She wants hiatal hernia repair. She has sleeve with complications. Dietary goals protein 80 to 100 grams. Calories 1000 kcal Carbs: 100 g/daily Fluids 220 oz, 128 oz. fluids No straws Hiatal hernia repair advised. Highest weight 480 pounds 2 weeks. US liver for fatty liver disease. Evaluation for gastric bypass. Keep it 100! Objective - Vital Signs Vital signs: Vital Signs Temp 98 F 11/12/23 13:18 Pulse 63 11/12/23 13:18 Resp BP 161/93 11/12/23 13:18 Pulse Ox FiO2 Intake & Output 11/11/23 11/12/23 11/12/23 18:59 06:59 18:59 Weight 149.232 kg Assessment/Plan Plan: Date: 11/12/23 Initial Weight: 217.724 kg Initial BMI: 82.3 Current Weight: 149.232 kg Current BMI: 56.5 Type of Surgery: Total Volume in Band: Previous Volume: Volume Removed: Volume Added: Band Size:
== END ==
LOC: BARWHC3 12:55
PROVIDERS: ATTEND Surgery Plastic and Reconstructive Surgery
DX: E66.01 Morbid (severe) obesity due to excess calories (principal); K76.0 Fatty (change of) liver, not elsewhere classified; Z68.43 Body mass index [BMI] 50.0-59.9, adult
CPT/HCPCS: 99211

== ENCOUNTER → 2023-12-02 | Outpatient (CLI) | payer MEDICARE, OTHER ==
--- NOTE | 2023-12-02 10:38 | US ---
EXAMINATION TYPE: US abdomen limited DATE OF EXAM: 12/02/2023 COMPARISON: US 2022 CLINICAL INDICATION: Female, 33 years old with history of K92.0 HEMATEMESIS; Abdomen pain TECHNIQUE: Multiple sonographic images of the right upper quadrant are obtained. FINDINGS: EXAM MEASUREMENTS: Liver Length: 18.6 cm CBD: 0.7 cm Right Kidney: 10.5 x 4.7 x 4.8 cm Technically difficult and limited study due to patient body habitus Pancreas: visualized portions wnl, limited by overlying midline bowel gas Liver: enlarged, heterogeneous, increased attenuation, decreased visualization of vessels suggestive of fatty infiltrate Gallbladder: surgically absent Evidence for sonographic Ramirez's sign: no CBD: wnl Right Kidney: visualized portions wnl, inferior pole limited by overlying bowel gas IMPRESSION: 1. No evidence for acute process. 2. Hepatocellular disease without suspicious lesion identified.
== END | disposition home or self-care (01) ==
LOC: RADUSWWP 09:09
PROVIDERS: ATTEND Surgery Plastic and Reconstructive Surgery
DX: K92.0 Hematemesis (principal); K76.9 Liver disease, unspecified
CPT/HCPCS: 76705

== ENCOUNTER → 2023-12-26 | Outpatient (CLI) | payer MEDICARE, OTHER ==
[2023-12-26 15:20] LABS: Basophils # (A) 0.02 X 10*3/uL (0.00-0.10); Basophils % (A) 0.3 %; Eosinophils % (A) 2.8 %; HCT 41.5 % (37.2-46.3); HGB 13.6 g/dL (12.0-15.0); Lymphocytes # (A) 1.52 X 10*3/uL (0.90-5.00); Lymphocytes % (A) 21.3 %; MCH 29.9 pg (27.0-32.0); MCHC 32.8 g/dL (32.0-37.0); MCV 91.2 FL (80.0-97.0); Mean Platelet Volume 12.1 FL (9.5-12.2); Monocytes # (A) 0.46 X 10*3/uL (0.20-1.00); Monocytes % (A) 6.4 %; NRBC Per 100 WBC 0 X 10*3/uL (0.00-0.01); Neutrophils # (A) 4.92 X 10*3/uL (1.80-7.70); Neutrophils % (A) 68.8 %; Platelet Count 198 X 10*3/uL (140-440); RBC 4.55 X 10*6/uL (4.10-5.20); RDW 14.4 % (11.5-14.5); WBC 7.15 X 10*3/uL (4.50-10.00)
[2023-12-26 15:46] LABS: ALT 21 U/L (8-44); AST 40 U/L (13-35); Albumin 4.1 g/dL (3.8-4.9); Albumin/Globulin Ratio 1.58 Ratio (1.60-3.17); Alkaline Phosphatase 116 U/L (41-126); BUN/Creat Ratio 25.78 Ratio (12.00-20.00); Blood Urea Nitrogen 23.2 mg/dL (9.0-27.0); Calcium 9.3 mg/dL (8.7-10.3); Chloride 104 mmol/L (96-109); Globulin 2.6 g/dL (1.6-3.3); Glucose 75 mg/dL (70-110); Potassium 4.2 mmol/L (3.5-5.5); Sodium 142 mmol/L (135-145); Total Bilirubin 0.5 mg/dL (0.3-1.2); Total Protein 6.7 g/dL (6.2-8.2)
== END | disposition home or self-care (01) ==
LOC: LABPAT 10:18
PROVIDERS: ATTEND Surgery Plastic and Reconstructive Surgery
DX: Z01.812 Encounter for preprocedural laboratory examination (principal)
CPT/HCPCS: 80053; 85025; 86850; 86900; 86901

== ENCOUNTER 2024-01-05 14:17 | Day surgery (SDC) | payer MEDICARE, OTHER ==
--- NOTE | 2024-01-05 07:48 | P.GSHP ---
History of Present Illness H&P Date: 01/05/24 CHIEF COMPLAINT: Paraesophageal hiatal hernia with gastroesophageal reflux disease. HISTORY OF PRESENT ILLNESS: The patient is a 33-year-old female who presents with symptomatic paraesophageal hiatal hernia over one year with gastroesophageal reflux disease. She has pre-existing history of sleeve gastrectomy She has completed upper endoscopy workup. Now she presents for surgical intervention. PAST MEDICAL HISTORY: Please see list. PAST SURGICAL HISTORY: Please see list. MEDICATIONS: Please see list. ALLERGIES: Please see list. SOCIAL HISTORY: No illicit drug use FAMILY HISTORY: No reports of Crohn disease or ulcerative colitis. REVIEW OF ORGAN SYSTEMS: CONSTITUTIONAL: At height of 5 feet 4 inches, her ideal body weight is 144 pounds. Previous weight over 400+ pounds. HEENT: Denies any active troubles with vision or hearing. ENDOCRINE: Denies diabetes. Denies hypothyroidism. CARDIOVASCULAR: Past reports of palpitations or heart attacks or chest pain. RESPIRATORY: Has daytime somnolence. GASTROINTESTINAL: Denies any bright red blood per rectum. Has gastroesophageal reflux disease. MUSCULOSKELETAL: Has lower back pain and joint pain. Has osteoarthritis of the knees. NEURO: No headaches. No seizure disorders. PSYCH: Has depression. No suicidal ideation. RHEUMATOLOGIC: No lupus. No rheumatoid arthritis. HEMATOLOGIC: Denies any abnormal bleeding or bruising. No personal history of DVTs. SKIN: Denies rash. No skin cancer. PHYSICAL EXAM: VITAL SIGNS: Stable GENERAL: Well-developed pleasant and in no acute distress. HEENT: No scleral icterus. Extraocular movements grossly intact. Moist buccal mucosa. NECK: Supple without lymphadenopathy. CHEST: Unlabored respirations. Equal bilateral excursions. CARDIOVASCULAR: Regular rate and rhythm. Distal 2+ pulses. ABDOMEN: Soft, nondistended. No peritoneal signs. MUSCULOSKELETAL: No clubbing, cyanosis, or edema. SKIN: Well-perfused. Good skin turgor. REPORTS: Upper endoscopy demonstrates paraesophageal hiatal hernia BARIUM SWALLOW: Images reviewed demonstrating paraesophageal hiatal hernia. This is my independent interpretation. REPORTS: Cardiology risk assessment obtained. Please see chart. ASSESSMENT: 1. Diaphragmatic paraesophageal hiatal hernia with severe gastroesophageal reflux disease. PLAN: 1. Recommend proceeding with a robotic paraesophageal hiatal hernia with possible mesh. 2. Benefits and risks of surgical intervention was discussed including possibility of open technique. 3. Inpatient hospitalization recommended of 2 nights 4. DVT prophylaxis. 5. Antibiotic prophylaxis. 6. She has also completed a very low caloric high-protein diet to address u nderlying hepatomegaly. 7. Non narcotic pain management including abdominal wall block described 8. Blood sugar glucose described. 9. Weight loss management described. 10. She is elevated risk for complications extending obesity and other comorbidities Past Medical History Past Medical History: Asthma, GERD/Reflux, Liver Disease Additional Past Medical History / Comment(s): stress seizures >10 YRS AGO; FATTY LIVER, HIATAL HERNIA History of Any Multi-Drug Resistant Organisms: None Reported Past Surgical History: Bariatric Surgery, Breast Surgery, Cholecystectomy Additional Past Surgical History / Comment(s): sleeve gastrectomy, TUMMY TUCK, BREAST REDUCTION Past Anesthesia/Blood Transfusion Reactions: No Reported Reaction, Family History of Problems w/ Anesthesia Additional Past Anesthesia/Blood Transfusion Reaction / Comment(s): MOM- HARD TIME WAKING UP AFTER ANESTHESIA Smoking Status: Never smoker Medications and Allergies Home Medications Medication Instructions Recorded Confirmed Type Albuterol Nebulized [Ventolin 2.5 mg INHALATION RT-TID PRN 03/18/15 01/01/24 History Nebulized] Dextroamphetamine/Amphetamine 20 mg PO TID 04/18/23 01/01/24 History [Adderall] Medroxyprogesterone Acetate 150 mg IM Q84D 04/18/23 01/01/24 History [Depo-Provera] Omeprazole 40 mg PO DAILY 04/18/23 01/01/24 History Triamterene-Hctz 75-50Mg [Maxzide 1 tab PO DAILY 04/18/23 01/01/24 History 75-50] Albuterol Inhaler [Ventolin Hfa 1 - 2 puff INHALATION Q6H PRN 10/14/23 01/01/24 History Inhaler] Furosemide [Lasix] 20 mg PO DAILY 01/01/24 01/01/24 History Phentermine HCl [Adipex-P] 37.5 mg PO DAILY 01/01/24 01/01/24 History Allergies Allergy/AdvReac Type Severity Reaction Status Date / Time No Known Allergies Allergy Verified 01/01/24 15:44
[~2024-01-05 14:17] MED LIST changes: -ACETAMINOPHEN TAB 500 MG TAB ONE; -ALBUTEROL HFA INHALER INHALATION ONE; -HEPARIN SODIUM,PORCINE 5,000 UNIT/ML 1 ML VIAL SQ STA; +HYDROmorphone 0.5 MG/0.5 ML SYRINGE IVP PRN; -LIDOCAINE 1% (10MG/ML) FOR IV START INTRADERMA PRN; -LIDOCAINE 1% INJ 10MG/ML (20 ML MDV) ONE; -MIDAZOLAM 2 MG/2 ML VIAL ONE; +ONDANSETRON 4 MG/2 ML VIAL IVP PRN; -PROPOFOL 10 MG/ML 20 ML VIAL IV ONE; -Pre Op ABX Message 1 EACH MISC MISCELLANE ONE; -ROCURONIUM 10 MG/ML (5 ML VIAL) IV ONE; -SCOPOLAMINE 1 MG/72 HR PATCH TRANSDERM ONE; -SUCCINYLCHOLINE CHLORIDE 200 MG/10 ML VIAL IV ONE; -SUGAMMADEX SODIUM 200 MG/2 ML SDV IV ONE; -ceFAZolin 3 GM in SODIUM CHLORIDE 0.9% 100 ML IVPB ONE; -droPERidol 5 MG/2 ML VIAL IVP ONE; -fentaNYL (PF) 50 MCG/ML 2 ML AMP ONE
[2024-01-05] MEDS: IV FLUID CONTINUATION 1,000 ML IV ONE (15:22)
[2024-01-05] MEDS: ACETAMINOPHEN TAB 500 MG TAB PO PRN (15:36)
[2024-01-05] MEDS: LACTATED RINGERS 1,000 ML IV SCH (15:45)
[2024-01-05] MEDS: DEXAMETHASONE SOD PHOSPHATE 4 MG/ML 1 ML VIAL IV ONE (15:45)
[2024-01-05] MEDS: ONDANSETRON 4 MG/2 ML VIAL IVP ONE (15:47)
[2024-01-05] MEDS: HEPARIN SODIUM,PORCINE 5,000 UNIT/ML 1 ML VIAL SQ PRN (15:53)
[2024-01-05] MEDS: MIDAZOLAM 2 MG/2 ML VIAL IV ONE (15:54)
[2024-01-05] MEDS ORDERED: SUCCINYLCHOLINE CHLORIDE 200 MG/10 ML VIAL IV ONE (17:40)
[2024-01-05] MEDS ORDERED: LIDOCAINE 1% INJ 10MG/ML (20 ML MDV) ONE (17:40)
[2024-01-05] MEDS ORDERED: PROPOFOL 10 MG/ML 20 ML VIAL IV ONE (17:40)
[2024-01-05] MEDS ORDERED: SUGAMMADEX SODIUM 200 MG/2 ML SDV IV ONE (17:40)
[2024-01-05] MEDS ORDERED: ROCURONIUM 10 MG/ML (5 ML VIAL) IV ONE (17:40)
[2024-01-05] MEDS ORDERED: MIDAZOLAM 2 MG/2 ML VIAL ONE (17:40)
[2024-01-05] MEDS ORDERED: ALBUTEROL HFA INHALER INHALATION ONE (17:40)
[2024-01-05] MEDS ORDERED: fentaNYL (PF) 50 MCG/ML 2 ML AMP ONE (17:40)
[2024-01-05] MEDS: ceFAZolin 3 GM in SODIUM CHLORIDE 0.9% 100 ML IVPB PRN (17:41)
[2024-01-05] MEDS: LIDOCAINE 1%-EPI 1:100,000 20 ML VIAL SQ ONE (17:59)
--- NOTE | 2024-01-05 18:39 | P.OP ---
Date of Procedure: 01/05/24 Description of Procedure: SURGEON: NICOLE JOHNSON MD PREOPERATIVE DIAGNOSES: 1. Diaphragmatic hiatal hernia with incarceration 2. Gastroesophageal reflux disease 3. Attention deficit disorder with attention deficit hyperactive disorder 4. Body mass index 82.6, initial 5. Hypertensive heart disease 6. Asthma 7. Seizure disorder 8. Morbid obesity due to excess calories 9. Osteoarthritis lower back 10. Bipolar disorder 11. Status post sleeve gastrectomy, BMI 57.0 12. Fatty liver disease with hepatomegaly 13. Dietary surveillance and counseling POSTOPERATIVE DIAGNOSES: 1. Diaphragmatic hiatal hernia with incarceration 2. Gastroesophageal reflux disease 3. Attention deficit disorder with attention deficit hyperactive disorder 4. Body mass index 82.6, initial 5. Hypertensive heart disease 6. Asthma 7. Seizure disorder 8. Morbid obesity due to excess calories 9. Osteoarthritis lower back 10. Bipolar disorder 11. Status post sleeve gastrectomy, BMI 57.0 12. Fatty liver disease with hepatomegaly 13. Dietary surveillance and counseling 14. Medical noncompliance OPERATION: 1. Robotic assisted daVinci Xi laparoscopic hiatal hernia repair ABORTED 2. Diagnostic laparoscopy ANESTHESIA: Gen. local anesthetic ESTIMATED BLOOD LOSS: 1 mL SPECIMENS REMOVED: None COMPLICATIONS: None. FINDINGS: 1. Persistent severe hepatomegaly with fatty liver disease prohibiting procedure for hiatal hernia repair INDICATIONS: The patient is a 33-year-old female who presents with symptomatic gastroesophageal reflux disease including morbid obesity, BMI 57.0. Patient was placed under strict dietary adherence to a low-carb high-protein diet with a targeted weight loss of 5% over 17 pounds, 313 pounds. Despite multiple weeks of counseling, patient presented not obtaining her targeted weight loss. Patient was given the option for deferring her procedure however patient had elected for diagnostic laparoscopy with possible hiatal hernia repair. Benefits and risks of the procedure were described at length including discontinue surgery due to severe hepatomegaly. Informed consent was obtained. DESCRIPTION: The patient was brought into the operating room theater. Preoperatively she had received Heparin subcutaneously for DVT prophylaxis. Additionally she had Peridex oral solution as an oral decontaminant. After general induction, the abdomen was prepped and draped in standard sterile fashion. An Ioban draping was placed along the abdomen. At 12 cm from the xiphoid, proposed port sites were marked with indelible marker along the anterior axillary line bilaterally, mid axillary line bilaterally with each ports 10 cm from each other. A 5 mm 0 degrees laparoscopic trocar entry was performed along the left upper quadrant. The abdomen was insufflated to 15 mmHg pressure was tolerated well. Diagnostic laparoscopy demonstrated no injury to bowel, viscera, or mesentery. The liver was persistently large with severe fatty liver disease and hepatomegaly despite her attentive diet.The liver edge was round and large confirming moderate to severe hepatomegaly prohibiting progression of her case. With this finding, case was aborted. The incision was closed using subcuticular interrupted suture of 4-0 Monocryl. Dermabond was applied to the skin once the skin had been cleansed. At the end of the procedure, needle, sponge, and instrument count was verified correct by the critical care technician. The patient was taken to the postanesthesia care unit in stable condition. Plan - Discharge Summary Discharge Rx Participant: No New Discharge Prescriptions: New Simethicone [Gas-X] 125 mg PO AC-TID PRN #20 capsule PRN Reason: Pain Acetaminophen Tab [Tylenol Tab] 1,000 mg PO Q6HR PRN #30 tablet PRN Reason: Pain Continue Albuterol Nebulized [Ventolin Nebulized] 2.5 mg INHALATION RT-TID PRN PRN Reason: Shortness Of Breath Omeprazole 40 mg PO DAILY Triamterene-Hctz 75-50Mg [Maxzide 75-50] 1 tab PO DAILY Dextroamphetamine/Amphetamine [Adderall] 20 mg PO TID Medroxyprogesterone Acetate [Depo-Provera] 150 mg IM Q84D Albuterol Inhaler [Ventolin Hfa Inhaler] 1 - 2 puff INHALATION Q6H PRN PRN Reason: Shortness Of Breath Furosemide [Lasix] 20 mg PO DAILY Phentermine HCl [Adipex-P] 37.5 mg PO DAILY Discharge Medication List Albuterol Nebulized [Ventolin Nebulized] 2.5 mg INHALATION RT-TID PRN 03/18/15 [History] Dextroamphetamine/Amphetamine [Adderall] 20 mg PO TID 04/18/23 [History] Medroxyprogesterone Acetate [Depo-Provera] 150 mg IM Q84D 04/18/23 [History] Omeprazole 40 mg PO DAILY 04/18/23 [History] Triamterene-Hctz 75-50Mg [Maxzide 75-50] 1 tab PO DAILY 04/18/23 [History] Albuterol Inhaler [Ventolin Hfa Inhaler] 1 - 2 puff INHALATION Q6H PRN 10/14/23 [History] Furosemide [Lasix] 20 mg PO DAILY 01/01/24 [History] Phentermine HCl [Adipex-P] 37.5 mg PO DAILY 01/01/24 [History] Acetaminophen Tab [Tylenol Tab] 1,000 mg PO Q6HR PRN #30 tablet 01/05/24 [Rx] Simethicone [Gas-X] 125 mg PO AC-TID PRN #20 capsule 01/05/24 [Rx] [facility]ment(s[facility] [place] [place] [facility] - 01/09/24 9:00 am Patient Instructions/Handouts: Non-Alcoholic Fatty Liver Disease (DC), Exploratory Laparoscopy (DC) Activity/Diet/Wound Care/Special Instructions: NO LONG DRIVES OR AIRPLANE RIDES OVER 30 MINUTES FOR THE NEXT 2 WEEKS DUE TO HIGH RISK OF PULMONARY EMBOLISM/DVTs No lifting over 10 pounds in 2 weeks until Jan 18October shower. No bath tub soaks for two weeks until Jan 18 Diet as tolerated. Use Tylenol, simethicone and ibuprofen or Aleve scheduled for the next 24-48 hours for best pain relief. Use ice along incisions for today to prevent swelling. Discharge Disposition: HOME SELF-CARE
[2024-01-05 18:41] VITALS: TEMP 97.4
--- NOTE | 2024-01-05 19:06 | P.PN ---
Progress Note - Text Progress Note Date: 01/05/24 Patient seen in recovery room with findings from surgery described. Patient then reports that she had not adhered to her diet. She has been eating high carbohydrate and processed foods such as breads and pasta which is contraindicated with her high-protein low carbohydrate diet. "I cannot afford chicken or protein and I cannot do without carbs." " I had fatty liver disease as a teenager." Patient had been over 480 pounds as a teenager. Patient was upset and tearful. She reports vomiting daily which is also contraindicated with a hiatal hernia surgery. She reports pain with vomiting. "You will never see me again." Patient encouraged that alternatives to a high carbohydrate diet exist and could limit her progression to severe fatty liver disease including potentially liver cirrhosis. "I just want to leave." Patient offered follow-up postoperative visit for alternatives with her ongoing care. "I am going to find another surgeon to do my surgery with fatty liver disease." Patient offered postoperative counseling at her discretion.
[2024-01-05 20:01] VITALS: RESP 16
[2024-01-05 20:06] VITALS: BP 125/59; PULSE 93
== END 2024-01-05 19:40 | disposition home or self-care (01) ==
LOC: OR 14:17
PROVIDERS: ATTEND Surgery Plastic and Reconstructive Surgery
DX: K44.0 Diaphragmatic hernia with obstruction, without gangrene (principal); E66.01 Morbid (severe) obesity due to excess calories; I11.9 Hypertensive heart disease without heart failure; G40.909 Epilepsy, unspecified, not intractable, without status epilepticus; K21.9 Gastro-esophageal reflux disease without esophagitis; J45.909 Unspecified asthma, uncomplicated; K76.0 Fatty (change of) liver, not elsewhere classified; F90.9 Attention-deficit hyperactivity disorder, unspecified type; F31.9 Bipolar disorder, unspecified; Z68.45 Body mass index [BMI] 70 or greater, adult; Z79.899 Other long term (current) drug therapy; Z90.49 Acquired absence of other specified parts of digestive tract; Z98.84 Bariatric surgery status; Z71.3 Dietary counseling and surveillance; Z91.199 Patient's noncompliance with other medical treatment and regimen due to unspecified reason
CPT/HCPCS: 81025; 43281; J2250; J0330; J1644; J1100; J0690; J2405; J2001; J3010; J2704

== ENCOUNTER → 2024-03-03 | Outpatient (CLI) | payer MEDICARE, OTHER ==
--- NOTE | 2024-03-04 12:30 | CT ---
EXAMINATION TYPE: CT abdomen pelvis w con DATE OF EXAM: 03/03/2024 COMPARISON: Ultrasound 12/02/2023 HISTORY: K76.0 FATTY (CHANGE OF) LIVER, NOT ELSEWHERE CLASS CONTRAST: CT scan of the abdomen and pelvis is performed without Oral Contrast and with IV Contrast, patient in jected with 100 mL of Isovue 300. FINDINGS: LUNG BASES-: No visible nodule. No infiltrate. LIVER/GB: The gallbladder is surgically absent. Very mild hepatic steatosis suggested. No space oc cupying hepatic lesion. Biliary tree is of normal caliber. PANCREAS: No inflammation. No distinct mass. SPLEEN: Splenomegaly identified with a craniocaudal measurement of 16.3 cm. No lesion seen. ADRENALS: No nodule. No thickening. KIDNEYS/BLADDER: No hydronephrosis. No nephrolithiasis. No distinct renal mass. Urinary bladder g rossly unremarkable. BOWEL: Normal appendix. Normal bowel caliber. No inflammation. Gastric sleeve changes suggested. GENITAL ORGANS: No gross abnormality. LYMPH NODES: No greater than 1cm abdominal or pelvic lymph nodes are appreciated. AORTA: No significant abnormality. OSSEOUS STRUCTURES: No significant abnormality is seen. OTHER: Herniorrhaphy changes seen. IMPRESSION: 1. Splenomegaly. 2. Very mild changes of hepatic steatosis. [facility], , 03/04/2024 12:28 PM
== END | disposition home or self-care (01) ==
LOC: RADCTMAIN 08:08
PROVIDERS: ATTEND Surgery
DX: K76.0 Fatty (change of) liver, not elsewhere classified
CPT/HCPCS: 74177

== ENCOUNTER 2024-12-20 06:03 | Emergency (ER) | payer MEDICARE, OTHER ==
--- NOTE | 2024-12-20 06:59 | ED ---
Seizure HPI - General Chief Complaint: Seizure Stated Complaint: post seizure check up Time Seen by Provider: 12/20/24 06:10 Source: patient, RN notes reviewed Mode of arrival: ambulatory Limitations: no limitations - History of Present Illness Initial Comments: 34-year-old female presents emergency department presents emergency department chief complaint of seizure. Patient had a witnessed seizure by significant other in the room. Patient states she had what was called stress-induced seizures approximately 10 or 15 years ago but not had any issues since. Patient states that she started Mounjaro yesterday and she believes she is having a side effect. Patient denies fevers or chills mild headache denies chest pain abdominal pain shortness of breath fever chills no focal weakness. - Related Data Home Medications Medication Instructions Recorded Confirmed Albuterol Nebulized [Ventolin 2.5 mg INHALATION RT-TID PRN 03/18/15 01/05/24 Nebulized] Dextroamphetamine/Amphetamine 20 mg PO TID 04/18/23 01/05/24 [Adderall] Medroxyprogesterone Acetate 150 mg IM Q84D 04/18/23 01/05/24 [Depo-Provera] Omeprazole 40 mg PO DAILY 04/18/23 01/05/24 Triamterene-Hctz 75-50Mg [Maxzide 1 tab PO DAILY 04/18/23 01/05/24 75-50] Albuterol Inhaler [Ventolin Hfa 1 - 2 puff INHALATION Q6H PRN 10/14/23 01/05/24 Inhaler] Furosemide [Lasix] 20 mg PO DAILY 01/01/24 01/05/24 Phentermine HCl [Adipex-P] 37.5 mg PO DAILY 01/01/24 01/05/24 Previous Rx's Medication Instructions Recorded Acetaminophen Tab [Tylenol Tab] 1,000 mg PO Q6HR PRN #30 tablet 01/05/24 Simethicone [Gas-X] 125 mg PO AC-TID PRN #20 capsule 01/05/24 Allergies Allergy/AdvReac Type Severity Reaction Status Date / Time No Known Allergies Allergy Verified 12/20/24 06:08 Review of Systems ROS Statement: Those systems with pertinent positive or pertinent negative responses have been documented in the HPI. ROS Other: All systems not noted in ROS Statement are negative. Past Medical History Past Medical History: Asthma, GERD/Reflux, Liver Disease Additional Past Medical History / Comment(s): stress seizures >10 YRS AGO; FATTY LIVER, HIATAL HERNIA History of Any Multi-Drug Resistant Organisms: None Reported Past Surgical History: Bariatric Surgery, Breast Surgery, Cholecystectomy Additional Past Surgical History / Comment(s): sleeve gastrectomy, TUMMY TUCK, BREAST REDUCTION, gastric bypass Past Anesthesia/Blood Transfusion Reactions: No Reported Reaction, Family History of Problems w/ Anesthesia Additional Past Anesthesia/Blood Transfusion Reaction / Comment(s): MOM- HARD TIME WAKING UP AFTER ANESTHESIA Past Psychological History: ADD/ADHD, Anxiety, Bipolar Smoking Status: Never smoker Past Alcohol Use History: None Reported Past Drug Use History: None Reported General Exam Limitations: no limitations General appearance: alert, in no apparent distress Head exam: Present: atraumatic, normocephalic, normal inspection Eye exam: Present: normal appearance, PERRL, EOMI. Absent: scleral icterus, conjunctival injection, periorbital swelling ENT exam: Present: normal exam, normal oropharynx, mucous membranes moist Neck exam: Present: normal inspection, full ROM. Absent: tenderness, meningismus, lymphadenopathy Respiratory exam: Present: normal lung sounds bilaterally. Absent: respiratory distress, wheezes, rales, rhonchi, stridor Cardiovascular Exam: Present: regular rate, normal rhythm, normal heart sounds. Absent: systolic murmur, diastolic murmur, rubs, gallop, clicks GI/Abdominal exam: Present: soft, normal bowel sounds. Absent: distended, tenderness, guarding, rebound, rigid Neurological exam: Present: alert, oriented X3, CN II-XII intact, reflexes normal. Absent: motor sensory deficit Skin exam: Present: warm, dry, intact, normal color. Absent: rash Course Vital Signs 12/20/24 12/20/24 06:04 08:08 Temperature 98.2 F Pulse Rate 82 72 Respiratory 18 16 Rate Blood Pressure 124/82 133/60 O2 Sat by Pulse 99 98 Oximetry - Reevaluation(s) Reevaluation #1: 12/20/24 06:59 Nurse contacted me stating the patient had a witnessed seizure lasting approximately 50 seconds. Medical Decision Making - Medical Decision Making Was pt. sent in by a medical professional or institution (, PA, HEMATOLOGY ONCOLOGY CONSULTANT, urgent care, hospital, or group home...) When possible be specific @ -No Did you speak to anyone other than the patient for history (EMS, parent, family, police, friend...)? What history was obtained from this source @ -No Did you review nursing and triage notes (agree or disagree)? Why? @ -I reviewed and agree with nursing and triage notes Were old charts reviewed (outside hosp., previous admission, EMS record, old EKG, old radiological studies, urgent care reports/EKG's, group home records)? Report findings @ -No old charts were reviewed Differential Diagnosis (chest pain, altered mental status, abdominal pain women, abdominal pain men, vaginal bleeding, weakness, fever, dyspnea, syncope, headache, dizziness, GI bleed, back pain, seizure, CVA, palpatations, mental health, musculoskeletal)? @ -Differential Seizure: Recurrent seizure disorder, febrile seizure, alcohol withdrawal, stimulants, men ingitis, encephalitis, intercranial hemorrhage, intracranial tumor, stroke, eclampsia, thyrotoxicosis, hypocalcemia, hyponatremia, hypernatremia, hypomagnesemia, psychogenic, this is not meant to be an all-inclusive list. EKG interpreted by me (3pts min.). @ -As above X-rays interpreted by me (1pt min.). @ -None done CT interpreted by me (1pt min.). @ -CT of the brain showed no acute intracranial process no hemorrhage or edema U/S interpreted by me (1pt. min.). @ -None done What testing was considered but not performed or refused? (CT, X-rays, U/S, labs)? Why? @ -None What meds were considered but not given or refused? Why? @ -None Did you discuss the management of the patient with other professionals (professionals i.e. , PA, HEMATOLOGY ONCOLOGY CONSULTANT, lab, RT, psych nurse, social media analyst, head sawyer, teacher, drug abuse resistance education officer, rehabilitation caseworker)? Give summary @ -No Was smoking cessation discussed for >3mins.? @ -No Was critical care preformed (if so, how long)? @ -No Were there social determinants of health that impacted care today? How? (Homelessness, low income, unemployed, alcoholism, drug addiction, transpo rtation, low edu. Level, literacy, decrease access to med. care, retirement, rehab)? @ -No Was there de-escalation of care discussed even if they declined (Discuss DNR or withdrawal of care, Hospice)? DNR status @ -No What co-morbidities impacted this encounter? (DM, HTN, Smoking, COPD, CAD, Cancer, CVA, ARF, Chemo, Hep., AIDS, mental health diagnosis, sleep apnea, morbid obesity)? @ -None Was patient admitted / discharged? Hospital course, mention meds given and route, prescriptions, significant lab abnormalities, going to OR and other pertinent info. @ -Discharge patient presented for possible seizure. Patient had a witnessed seizure or possible shaking episode in the emergency department. Laboratory studies were drawn just after this episode and no significant change in CO2. Patient does have a history of what she states is stress and anxiety issues relating to seizures. Patient will follow-up with neurology and return for as discussed. Undiagnosed new problem with uncertain prognosis? @ -No Drug Therapy requiring intensive monitoring for toxicity (Heparin, Nitro, Insulin, Cardizem)? @ -No Were any procedures done? @ -No Diagnosis/symptom? @ -Seizure like activity Acute, or Chronic, or Acute on Chronic? @ -Acute Uncomplicated (without systemic symptoms) or Complicated (systemic symptoms)? @ -Complicated Side effects of treatment? @ -No Exacerbation, Progression, or Severe Exacerbation? @ -No Poses a threat to life or bodily function? How? (Chest pain, [place], [place], pneumonia, PE, COPD, DKA, ARF, appy, cholecystitis, CVA, Diverticulitis, Homicidal, Suicidal, threat to staff... and all critical care pts) @ -No - Lab Data Result diagrams: 12/20/24 07:26 12/20/24 07:26 Lab Results 12/20/24 12/20/24 12/20/24 Range/Units 06:51 07:26 07:26 WBC 5.36 (4.50-10.00) 10*3/uL RBC 4.46 (4.10-5.20) 10*6/uL Hgb 13.8 (12.0-15.0) g/dL Hct 42.2 (37.2-46.3) % MCV 94.6 (80.0-97.0) fL MCH 30.9 (27.0-32.0) pg MCHC 32.7 (32.0-37.0) g/dL Plt Count 159 (140-440) 10*3/uL MPV 11.4 (9.5-12.2) fL Immature Gran % (Auto) 0.2 % Neutrophils % 73.1 % Lymphocytes % 19.8 % Monocytes % 5.4 % Eosinophils % 1.3 % Basophils % 0.2 % Immature Gran # 0.01 (0.00-0.04) 10*3/uL Neutrophils # 3.92 (1.80-7.70) 10*3/uL Lymphocytes # 1.06 (0.90-5.00) 10*3/uL Monocytes # 0.29 (0.20-1.00) 10*3/uL Eosinophils # 0.07 (0.04-0.35) 10*3/uL Basophils # 0.01 (0.00-0.10) 10*3/uL Sodium 140 (137-145) mmol/L Potassium 4.7 (3.5-5.1) mmol/L Chloride 109 H (98-107) mmol/L Carbon Dioxide 22 (22-30) mmol/L Anion Gap 9 mmol/L BUN 14 (7-17) mg/dL Creatinine 0.70 (0.52-1.04) mg/dL Est GFR (CKD-EPI)AfAm >90 (>60 ml/min/1.73 sqM) Est GFR (CKD-EPI)NonAf >90 (>60 ml/min/1.73 sqM) Glucose 102 H (74-99) mg/dL Calcium 9.3 (8.4-10.2) mg/dL Magnesium 1.7 (1.6-2.3) mg/dL Total Bilirubin 1.0 (0.2-1.3) mg/dL AST 24 (14-36) U/L ALT 15 (4-34) U/L Alkaline Phosphatase 123 (38-126) U/L Total Protein 6.6 (6.3-8.2) g/dL Albumin 3.9 (3.5-5.0) g/dL HCG, Qual Not Detected Urine Color Yellow Urine Appearance Cloudy H (Clear) Urine pH 6.0 (5.0-8.0) Ur Specific [place] 1.032 (1.001-1.035) Urine Protein Trace H (Negative) Urine Glucose (UA) Negative (Negative) Urine Ketones Negative (Negative) Urine Blood Negative (Negative) Urine Nitrite Negative (Negative) Urine Bilirubin Negative (Negative) Urine Urobilinogen 2.0 (<2.0) mg/dL Ur Leukocyte Esterase Negative (Negative) Urine RBC 2 (0-5) /hpf Urine WBC 3 (0-5) /hpf Ur Squamous Epith Cells 11 H (0-4) /hpf Urine Bacteria Occasional H (None) /hpf Urine Mucus Many H (None) /hpf - EKG Data -: EKG Interpreted by Me EKG Comments: EKG performed at 6: 43 sinus rhythm with a rate of 64 [place] 154 QRS 106 QT/QTc 384/393 Disposition Clinical Impression: Seizure-like activity Disposition: HOME SELF-CARE Condition: Stable Instructions (If sedation given, give patient instructions): New-Onset Seizure in Adults (ED) Additional Instructions: No driving until cleared by neurology per [place] law. Please return to the Emergency Department if symptoms worsen or any other concerns. Is patient prescribed a controlled substance at d/c from ED?: No Referrals: Nely Gómez NPC [Primary Care Provider] - 1-2 days Time of Disposition: 09:08
[2024-12-20 07:18] LABS: Bacteria,Urine Occasional /hpf; Bilirubin,Urine Negative (Negative); Blood,Urine Negative (Negative); Color,Urine Yellow; Glucose,Urine (UA) Negative (Negative); Ketones,Urine Negative (Negative); Leukocyte Esterase,Urine Negative (Negative); Mucus,Urine Many /hpf; Nitrite,Urine Negative (Negative); PH, Urine 6.0 (5.0-8.0); Protein,Urine Trace (Negative); RBC,Urine 2 /hpf (0-5); Specific Gravity,Urine 1.032 (1.001-1.035); Squamous Epithelial Cell,Urine 11 /hpf (0-4); Urobilinogen,Urine 2.0 mg/dL (<2.0); WBC,Urine 3 /hpf (0-5)
[2024-12-20 07:36] LABS: Basophils # (A) 0.01 10*3/uL (0.00-0.10); Basophils % (A) 0.2 %; Eosinophils # (A) 0.07 10*3/uL (0.04-0.35); Eosinophils % (A) 1.3 %; HCT 42.2 % (37.2-46.3); HGB 13.8 g/dL (12.0-15.0); Lymphocytes # (A) 1.06 10*3/uL (0.90-5.00); Lymphocytes % (A) 19.8 %; MCH 30.9 pg (27.0-32.0); MCHC 32.7 g/dL (32.0-37.0); MCV 94.6 fL (80.0-97.0); Monocytes # (A) 0.29 10*3/uL (0.20-1.00); Monocytes % (A) 5.4 %; Neutrophils # (A) 3.92 10*3/uL (1.80-7.70); Neutrophils % (A) 73.1 %; Platelet Count 159 10*3/uL (140-440); RBC 4.46 10*6/uL (4.10-5.20); RDW 13.2 % (11.5-14.5); WBC 5.36 10*3/uL (4.50-10.00)
[2024-12-20] MEDS: SODIUM CHLORIDE 0.9% 1,000 ML IV STA (07:36)
[2024-12-20 07:52] LABS: HCG,Qualitative Serum Not Detected
[2024-12-20 07:56] LABS: ALT 15 U/L (4-34); African American GFR (CKD) >90 (>60 ml/min/1.73 sqM); Albumin 3.9 g/dL (3.5-5.0); Anion Gap 9 mmol/L; Blood Urea Nitrogen 14 mg/dL (7-17); Calcium 9.3 mg/dL (8.4-10.2); Carbon Dioxide 22 mmol/L (22-30); Chloride 109 mmol/L (98-107); Glucose 102 mg/dL (74-99); Non-African American GFR(CKD) >90 (>60 ml/min/1.73 sqM); Sodium 140 mmol/L (137-145); Total Protein 6.6 g/dL (6.3-8.2)
--- NOTE | 2024-12-20 08:02 | CT ---
EXAMINATION TYPE: CT brain wo con DATE OF EXAM: 12/20/2024 7:54 AM COMPARISON: None. CLINICAL INDICATION: Female, 34 years old with history of seizure, Seizure TECHNIQUE: Brain: Axial CT images of the brain were obtained with coronal and sagittal reformats created and rev iewed. Contrast used: None. Oral contrast used: None. CT DLP: 1097.9 mGycm, Automated exposure control for dose reduction was used. FINDINGS: Brain: Extra-axial spaces: No abnormal extra-axial fluid collections. Ventricular system: Within normal limits Cerebral parenchyma: No acute intraparenchymal hemorrhage or mass effect. The beckett-white junction is well differentiated. Cerebellum: Unremarkable. Mass effect: No evidence of midline shift. Intracranial vasculature: unremarkable Soft tissues: Normal. Calvarium/osseous structures: No depressed skull fracture. Paranasal sinuses and mastoid air cells: Mild scattered paranasal sinus disease. Visualized orbits: Orbital contents are intact. IMPRESSION: No acute intracranial process. [facility], , 12/20/2024 7:59 AM
[2024-12-20] MEDS: LORazepam 1 MG/0.5 ML VIAL IV STA (08:07)
[2024-12-20 08:11] LABS: AST 24 U/L (14-36); Alkaline Phosphatase 123 U/L (38-126); Magnesium 1.7 mg/dL (1.6-2.3); Potassium 4.7 mmol/L (3.5-5.1)
[2024-12-20 09:25] VITALS: BP 132/79; PULSE 84; RESP 18; TEMP 98.1
== END 2024-12-20 09:28 | disposition home or self-care (01) ==
LOC: EC 06:03
DX: R56.9 Unspecified convulsions (principal)
CPT/HCPCS: 36415; 93005; 80053; 83735; 85025; 81001; 84703; 70450; 99285; 96374; 96361; J2060

== ENCOUNTER 2024-12-27 18:44 | Emergency (ER) | payer MEDICARE, OTHER ==
--- NOTE | 2024-12-27 20:01 | ED ---
General Adult HPI - General Chief complaint: Abdominal Pain Stated complaint: Abd pain Time Seen by Provider: 12/27/24 19:44 Source: patient, RN notes reviewed Mode of arrival: ambulatory Limitations: no limitations - History of Present Illness Initial comments: 34-year-old female presents to the emergency department for right-sided abdominal pain. Patient states that this started yesterday. She notes it is a sharp pain. She does report that it is worse with movement. Patient endorses nausea without vomiting. Endorses constipation. Denies any fever, chills. She reports prior cholecystectomy, gastric surgery and revision. - Related Data Home Medications Medication Instructions Recorded Confirmed Albuterol Nebulized [Ventolin 2.5 mg INHALATION RT-TID PRN 03/18/15 01/05/24 Nebulized] Dextroamphetamine/Amphetamine 20 mg PO TID 04/18/23 01/05/24 [Adderall] Medroxyprogesterone Acetate 150 mg IM Q84D 04/18/23 01/05/24 [Depo-Provera] Omeprazole 40 mg PO DAILY 04/18/23 01/05/24 Triamterene-Hctz 75-50Mg [Maxzide 1 tab PO DAILY 04/18/23 01/05/24 75-50] Albuterol Inhaler [Ventolin Hfa 1 - 2 puff INHALATION Q6H PRN 10/14/23 01/05/24 Inhaler] Furosemide [Lasix] 20 mg PO DAILY 01/01/24 01/05/24 Phentermine HCl [Adipex-P] 37.5 mg PO DAILY 01/01/24 01/05/24 Previous Rx's Medication Instructions Recorded Acetaminophen Tab [Tylenol Tab] 1,000 mg PO Q6HR PRN #30 tablet 01/05/24 Simethicone [Gas-X] 125 mg PO AC-TID PRN #20 capsule 01/05/24 Allergies Allergy/AdvReac Type Severity Reaction Status Date / Time No Known Allergies Allergy Verified 12/20/24 06:08 Review of Systems ROS Statement: Those systems with pertinent positive or pertinent negative responses have been documented in the HPI. ROS Other: All systems not noted in ROS Statement are negative. Past Medical History Past Medical History: Asthma, GERD/Reflux, Liver Disease Additional Past Medical History / Comment(s): stress seizures >10 YRS AGO; FATTY LIVER, HIATAL HERNIA History of Any Multi-Drug Resistant Organisms: None Reported Past Surgical History: Bariatric Surgery, Breast Surgery, Cholecystectomy Additional Past Surgical History / Comment(s): sleeve gastrectomy, TUMMY TUCK, BREAST REDUCTION, gastric bypass Past Anesthesia/Blood Transfusion Reactions: No Reported Reaction, Family Histor y of Problems w/ Anesthesia Additional Past Anesthesia/Blood Transfusion Reaction / Comment(s): MOM- HARD TIME WAKING UP AFTER ANESTHESIA Past Psychological History: ADD/ADHD, Anxiety, Bipolar Smoking Status: Never smoker Past Alcohol Use History: None Reported Past Drug Use History: None Reported General Exam Limitations: no limitations General appearance: alert, in no apparent distress Head exam: Present: atraumatic, normocephalic, normal inspection Eye exam: Present: normal appearance, PERRL, EOMI. Absent: scleral icterus, conjunctival injection, periorbital swelling ENT exam: Present: normal exam, mucous membranes moist Respiratory exam: Present: normal lung sounds bilaterally. Absent: respiratory distress, wheezes, rales, rhonchi, stridor Cardiovascular Exam: Present: regular rate, normal rhythm, normal heart sounds. Absent: systolic murmur, diastolic murmur, rubs, gallop, clicks GI/Abdominal exam: Present: soft, tenderness, normal bowel sounds. Absent: distended, guarding, rebound, rigid Extremities exam: Present: normal inspection, full ROM, normal capillary refill. Absent: tenderness, pedal edema, joint swelling, calf tenderness Neurological exam: Present: alert, oriented X3 Psychiatric exam: Present: normal affect, normal mood Skin exam: Present: warm, dry, intact, normal color. Absent: rash Course Vital Signs 12/27/24 12/27/24 12/27/24 18:47 21:35 22:15 Temperature 98.1 F Pulse Rate 95 87 81 Respiratory 18 17 16 Rate Blood Pressure 147/88 120/87 128/85 O2 Sat by Pulse 94 L 100 95 Oximetry 12/27/24 23:46 Temperature 98 F Pulse Rate 91 Respiratory 18 Rate Blood Pressure 128/74 O2 Sat by Pulse 98 Oximetry Medical Decision Making - Medical Decision Making Was pt. sent in by a medical professional or institution (, PA, SIGNALER, urgent care, hospital, or senior living...) When possible be specific @ -No Did you speak to anyone other than the patient for history (EMS, parent, family, police, friend...)? What history was obtained from this source @ -No Did you review nursing and triage notes (agree or disagree)? Why? @ -I reviewed and agree with nursing and triage notes Were old charts reviewed (outside hosp., previous admission, EMS record, old EKG, old radiological studies, urgent care reports/EKG's, senior living records)? Report findings @ -No old charts were reviewed Differential Diagnosis (chest pain, altered mental status, abdominal pain women, abdominal pain men, vaginal bleeding, weakness, fever, dyspnea, syncope, headache, dizziness, GI bleed, back pain, seizure, CVA, palpatations, mental health, musculoskeletal)? @ -Differential Abdominal Pain Women: Appendicitis, Cholecystitis, diverticulosis, ischemic bowel, pancreatitis, hepatitis, UTI, gastroenteritis, AAA, incarcerated hernia, bowel obstruction, constipation, inflammatory bowel, hepatitis, peptic ulcer disease, splenic infarction, perforated viscus, vulvitis, ovarian torsion, PID, kidney stone, placenta abruption, this is not meant to be an all-inclusive list EKG interpreted by me (3pts min.). @ -None X-rays interpreted by me (1pt min.). @ -None done CT interpreted by me (1pt min.). @ -CT of the abdomen pelvis reveals no evidence of acute abdominal/pelvic process U/S interpreted by me (1pt. min.). @ -None done What testing was considered but not performed or refused? (CT, X-rays, U/S, labs)? Why? @ -None What meds were considered but not given or refused? Why? @ -None Did you discuss the management of the patient with other professionals (professionals i.e. , PA, SIGNALER, lab, RT, psych nurse, social work professor, review trainer, teacher, commanding officer garage, keycase assembler)? Give summary @ -No Was smoking cessation discussed for >3mins.? @ -No Was critical care preformed (if so, how long)? @ -No Were there social determinants of health that impacted care today? How? (Homeles sness, low income, unemployed, alcoholism, drug addiction, transportation, low edu. Level, literacy, decrease access to med. care, nursing home, rehab)? @ -No Was there de-escalation of care discussed even if they declined (Discuss DNR or withdrawal of care, Hospice)? DNR status @ -No What co-morbidities impacted this encounter? (DM, HTN, Smoking, COPD, CAD, Cancer, CVA, ARF, Chemo, Hep., AIDS, mental health diagnosis, sleep apnea, morbid obesity)? @ -None Was patient admitted / discharged? Hospital course, mention meds given and route, prescriptions, significant lab abnormalities, going to OR and other pertinent info. @ -Discharge. Patient presented the emergency department for evaluation of i ntermittent laboratory studies revealing no significant leukocytosis 12.3; CMP is nonactionable, no significant elevation in lipase. UA reveals no evidence of infectious process, negative urine hCG. CT of the abdomen pelvis revealing no acute process. Patient provided IV fluids and medication for pain control in the emergency department. Patient does report significant improvement in her pain following this. Patient will be discharged home. She was advised of findings and strict return precautions discussed. She is understanding agreeable with plan. Patient stable at time of discharge. Case discussed with Dr. Hernandes Undiagnosed new problem with uncertain prognosis? @ -No Drug Therapy requiring intensive monitoring for toxicity (Heparin, Nitro, Insulin, Cardizem)? @ -No Were any procedures done? @ -No Diagnosis/symptom? @ -abdominal pain Acute, or Chronic, or Acute on Chronic? @ -acute Uncomplicated (without systemic symptoms) or Complicated (systemic symptoms)? @ -uncomplicated Side effects of treatment? @ -No Exacerbation, Progression, or Severe Exacerbation? @ -No Poses a threat to life or bodily function? How? (Chest pain, [place], [place], pneumonia, PE, COPD, DKA, ARF, appy, cholecystitis, CVA, Diverticulitis, Homicidal, Suicidal, threat to staff... and all critical care pts) @ -No - Lab Data Result diagrams: 12/27/24 20:55 12/27/24 20:55 Lab Results 12/27/24 12/27/24 12/27/24 Range/Units 20:25 20:25 20:55 WBC 6.84 (4.50-10.00) 10*3/uL RBC 3.94 L (4.10-5.20) 10*6/uL Hgb 12.3 (12.0-15.0) g/dL Hct 37.1 L (37.2-46.3) % MCV 94.2 (80.0-97.0) fL MCH 31.2 (27.0-32.0) pg MCHC 33.2 (32.0-37.0) g/dL Plt Count 155 (140-440) 10*3/uL MPV 12.0 (9.5-12.2) fL Immature Gran % (Auto) 0.3 % Neutrophils % 59.8 % Lymphocytes % 30.0 % Monocytes % 7.6 % Eosinophils % 2.0 % Basophils % 0.3 % Immature Gran # 0.02 (0.00-0.04) 10*3/uL Neutrophils # 4.09 (1.80-7.70) 10*3/uL Lymphocytes # 2.05 (0.90-5.00) 10*3/uL Monocytes # 0.52 (0.20-1.00) 10*3/uL Eosinophils # 0.14 (0.04-0.35) 10*3/uL Basophils # 0.02 (0.00-0.10) 10*3/uL Sodium (137-145) mmol/L Potassium (3.5-5.1) mmol/L Chloride (98-107) mmol/L Carbon Dioxide (22-30) mmol/L Anion Gap mmol/L BUN (7-17) mg/dL Creatinine (0.52-1.04) mg/dL Est GFR (CKD-EPI)AfAm (>60 ml/min/1.73 sqM) Est GFR (CKD-EPI)NonAf (>60 ml/min/1.73 sqM) Glucose (74-99) mg/dL Calcium (8.4-10.2) mg/dL Total Bilirubin (0.2-1.3) mg/dL AST (14-36) U/L ALT (4-34) U/L Alkaline Phosphatase (38-126) U/L Total Protein (6.3-8.2) g/dL Albumin (3.5-5.0) g/dL Lipase (23-300) U/L Urine Color Yellow Urine Appearance Cloudy H (Clear) Urine pH 5.5 (5.0-8.0) Ur Specific [place] 1.022 (1.001-1.035) Urine Protein Negative (Negative) Urine Glucose (UA) Negative (Negative) Urine Ketones Negative (Negative) Urine Blood Negative (Negative) Urine Nitrite Negative (Negative) Urine Bilirubin Negative (Negative) Urine Urobilinogen <2.0 (<2.0) mg/dL Ur Leukocyte Esterase Negative (Negative) Urine RBC <1 (0-5) /hpf Urine WBC 1 (0-5) /hpf Ur Squamous Epith Cells 2 (0-4) /hpf Urine Bacteria Rare H (None) /hpf Hyaline Casts 3 H (0-2) /lpf Urine Mucus Rare H (None) /hpf Urine Yeast (Budding) Rare H (None) /hpf Urine HCG, Qual Not Detected (Not Detectd) 12/27/24 Range/Units 20:55 WBC (4.50-10.00) 10*3/uL RBC (4.10-5.20) 10*6/uL Hgb (12.0-15.0) g/dL Hct (37.2-46.3) % MCV (80.0-97.0) fL MCH (27.0-32.0) pg MCHC (32.0-37.0) g/dL Plt Count (140-440) 10*3/uL MPV (9.5-12.2) fL Immature Gran % (Auto) % Neutrophils % % Lymphocytes % % Monocytes % % Eosinophils % % Basophils % % Immature Gran # (0.00-0.04) 10*3/uL Neutrophils # (1.80-7.70) 10*3/uL Lymphocytes # (0.90-5.00) 10*3/uL Monocytes # (0.20-1.00) 10*3/uL Eosinophils # (0.04-0.35) 10*3/uL Basophils # (0.00-0.10) 10*3/uL Sodium 137 (137-145) mmol/L Potassium 4.6 (3.5-5.1) mmol/L Chloride 107 (98-107) mmol/L Carbon Dioxide 19 L (22-30) mmol/L Anion Gap 11 mmol/L BUN 20 H (7-17) mg/dL Creatinine 0.80 (0.52-1.04) mg/dL Est GFR (CKD-EPI)AfAm >90 (>60 ml/min/1.73 sqM) Est GFR (CKD-EPI)NonAf >90 (>60 ml/min/1.73 sqM) Glucose 73 L (74-99) mg/dL Calcium 9.1 (8.4-10.2) mg/dL Total Bilirubin 1.2 (0.2-1.3) mg/dL AST 31 (14-36) U/L ALT 13 (4-34) U/L Alkaline Phosphatase 108 (38-126) U/L Total Protein 6.4 (6.3-8.2) g/dL Albumin 3.8 (3.5-5.0) g/dL Lipase 83 (23-300) U/L Urine Color Urine Appearance (Clear) Urine pH (5.0-8.0) Ur Specific [place] (1.001-1.035) Urine Protein (Negative) Urine Glucose (UA) (Negative) Urine Ketones (Negative) Urine Blood (Negative) Urine Nitrite (Negative) Urine Bilirubin (Negative) Urine Urobilinogen (<2.0) mg/dL Ur Leukocyte Esterase (Negative) Urine RBC (0-5) /hpf Urine WBC (0-5) /hpf Ur Squamous Epith Cells (0-4) /hpf Urine Bacteria (None) /hpf Hyaline Casts (0-2) /lpf Urine Mucus (None) /hpf Urine Yeast (Budding) (None) /hpf Urine HCG, Qual (Not Detectd) Disposition Clinical Impression: Abdominal pain Disposition: HOME SELF-CARE Condition: Stable Instructions (If sedation given, give patient instructions): Abdominal Pain (ED) Additional Instructions: Please follow up with your doctor. Return to the emergency department for new or worsening symptoms. Is patient prescribed a controlled substance at d/c from ED?: No Referrals: Joanie Yarbrough MD [Primary Care Provider] - 1-2 days
[2024-12-27] MEDS: SODIUM CHLORIDE 0.9% 1,000 ML IV ONE (20:52)
[2024-12-27 21:05] LABS: Basophils # (A) 0.02 10*3/uL (0.00-0.10); Basophils % (A) 0.3 %; Eosinophils # (A) 0.14 10*3/uL (0.04-0.35); Eosinophils % (A) 2.0 %; HCT 37.1 % (37.2-46.3); HGB 12.3 g/dL (12.0-15.0); Lymphocytes # (A) 2.05 10*3/uL (0.90-5.00); Lymphocytes % (A) 30.0 %; MCH 31.2 pg (27.0-32.0); MCHC 33.2 g/dL (32.0-37.0); MCV 94.2 fL (80.0-97.0); Monocytes # (A) 0.52 10*3/uL (0.20-1.00); Monocytes % (A) 7.6 %; Neutrophils # (A) 4.09 10*3/uL (1.80-7.70); Neutrophils % (A) 59.8 %; Platelet Count 155 10*3/uL (140-440); RBC 3.94 10*6/uL (4.10-5.20); RDW 12.9 % (11.5-14.5); WBC 6.84 10*3/uL (4.50-10.00)
[2024-12-27 21:07] LABS: Bacteria,Urine Rare /hpf; Bilirubin,Urine Negative (Negative); Blood,Urine Negative (Negative); Budding Yeast,Urine Rare /hpf; Color,Urine Yellow; Glucose,Urine (UA) Negative (Negative); Hyaline Casts,Urine 3 /lpf (0-2); Ketones,Urine Negative (Negative); Leukocyte Esterase,Urine Negative (Negative); Mucus,Urine Rare /hpf; Nitrite,Urine Negative (Negative); PH, Urine 5.5 (5.0-8.0); Protein,Urine Negative (Negative); RBC,Urine <1 /hpf (0-5); Specific Gravity,Urine 1.022 (1.001-1.035); Squamous Epithelial Cell,Urine 2 /hpf (0-4); Urobilinogen,Urine <2.0 mg/dL (<2.0); WBC,Urine 1 /hpf (0-5)
[2024-12-27 21:21] LABS: ALT 13 U/L (4-34); African American GFR (CKD) >90 (>60 ml/min/1.73 sqM); Anion Gap 11 mmol/L; Calcium 9.1 mg/dL (8.4-10.2); Carbon Dioxide 19 mmol/L (22-30); Chloride 107 mmol/L (98-107); Glucose 73 mg/dL (74-99); Lipase 83 U/L (23-300); Non-African American GFR(CKD) >90 (>60 ml/min/1.73 sqM); Sodium 137 mmol/L (137-145); Total Protein 6.4 g/dL (6.3-8.2)
--- NOTE | 2024-12-27 21:23 | CT ---
EXAMINATION TYPE: CT abdomen pelvis w con CT DLP: 2294 mGycm, Automated exposure control for dose reduction was used. DATE OF EXAM: 12/27/2024 9:13 PM COMPARISON: CT abdomen pelvis 03/03/2024 CLINICAL INDICATION:Female, 34 years old with history of right sided pain; right side pain TECHNIQUE: Standard CT of the abdomen and pelvis following the administration of 100 cc of Isovue 3 00 IV contrast material. Coronal and sagittal reformats were performed. FINDINGS: LOWER CHEST: The visualized lungs are clear. Mild cardiomegaly. No pericardial effusion. Bilateral an terior chest subcutaneous tissue calcifications. Left lateral inferior breast 1.2 cm nodule. ABDOMEN LIVER: No focal lesion. Enlarged measuring 21.9 cm in CC dimension. GALLBLADDER AND BILE DUCTS: The gallbladder is surgically absent. No biliary ductal dilatation. PANCREAS: Unremarkable. SPLEEN: Enlarged measuring 16.1 cm in CC dimension. ADRENAL GLANDS: Unremarkable. KIDNEYS AND URETERS: No evidence of hydronephrosis or renal calculus. The kidneys enhance symmetrical ly. Contrast is demonstrated within both collecting systems on the delayed phase. PELVIS BLADDER: Underdistended limiting evaluation. REPRODUCTIVE: The uterus is surgically absent. Right ovarian dominant follicular cyst measuring up to 2.2 cm. ABDOMEN & PELVIS STOMACH AND BOWEL: Postsurgical changes from Nicole-en-Y gastric bypass.No focal bowel wall thickening or stranding inflammatory changes identified. The appendix is within normal limits. No evidence of linda wel obstruction. PERITONEUM: No evidence of pneumoperitoneum or free fluid. VASCULATURE: No evidence of aortic aneurysm. MUSCULOSKELETAL: No acute osseous abnormalities LYMPH NODES: No evidence for lymphadenopathy. SOFT TISSUE/ABDOMINAL WALL: Surgical changes in the midline anterior abdominal wall. Additional scatt ered surgical clips within the ventral abdominal wall subcutaneous tissues. IMPRESSION: 1. No CT evidence for acute abdominal/pelvic process. 2. Hepatosplenomegaly. 3. Postsurgical changes. 4. Left breast 1.2 cm nodule. Recommend further evaluation with dedicated mammography and/or ultrasou nd. [facility], , 12/27/2024 9:20 PM
[2024-12-27 21:28] LABS: AST 31 U/L (14-36); Albumin 3.8 g/dL (3.5-5.0); Alkaline Phosphatase 108 U/L (38-126); Blood Urea Nitrogen 20 mg/dL (7-17); Potassium 4.6 mmol/L (3.5-5.1)
[2024-12-27] MEDS: KETOROLAC 15 MG/ML 1 ML VIAL IVP STA (21:37)
[2024-12-27] MEDS: MORPHINE SULFATE 4 MG/ML SYRINGE IVP STA (21:38)
[2024-12-27 23:51] VITALS: BP 128/74; PULSE 91; RESP 18; TEMP 98
== END 2024-12-27 23:48 | disposition home or self-care (01) ==
LOC: EC 18:44
DX: N63.20 Unspecified lump in the left breast, unspecified quadrant (principal); R10.9 Unspecified abdominal pain
CPT/HCPCS: 36415; 80053; 83690; 85025; 81001; 81025; 74177; 99284; 96374; J2270; Q9967